=== PATIENT | female | born 1985 | race Caucasian/White ===

== ENCOUNTER 2016-10-22 10:41 | Emergency (ER) | payer OTHER ==
[~2016-10-22] VITALS: Ht 167.6 cm; Wt 61.4 kg
[~2016-10-22 10:41] MED LIST: ALBUINHPP INH; AMIT10TA6 PO; QVAR40INH INH; VICODIN 5-3251 EACH PO; ZIT250 PO
[2016-10-22 10:56] VITALS: BP 117/61; PULSE 91; RESP 16; O2SAT 96
[2016-10-22] MEDS ORDERED: 0.9% Sodium Chloride 1,000 ML IV ONE ×2 (11:10→12:45)
[2016-10-22] MEDS ORDERED: Ondansetron 2 mg/mL 2 mL Inj IVPUSH PRN (11:10)
--- NOTE | 2016-10-22 11:10 | ED.REPORT ---
HPI-Abd Pain F Under 40 Date of Service Oct 22, 2016 ED Provider: History of Present Illness: 30yo female with 2 days of n/d with scant spotting. She reports LMP 09/13/16, suspects 5 weeks . . Nursing Notes Stated Complaint: CRAMPING, VOMITING/ 4-5 WKS PREG. Chief Complaint: & Delivery Nursing Notes Reviewed: Yes Allergies: Coded Allergies: clindamycin (Unverified Allergy, Severe, HIVES, 03/17/13) latex (Verified Allergy, Severe, HIVES, 03/17/13) Cephalexin Monohydrate (Verified Allergy, Intermediate, vomiting/migraine , 03/17/13) tramadol (Verified Allergy, Intermediate, MIGRAINES, 10/17/15) TAPE (Verified Allergy, Unknown, UNKNOWN, 03/17/13) levofloxacin (Verified Allergy, Unknown, 07/06/14) Penicillins (Verified Adverse Reaction, Severe, JITTERY, FAINT, HIVES, ) Uncoded Allergies: BANANAS (Allergy, Unknown, 08/29/12) BEES (Allergy, Unknown, UNKNOWN, 08/28/12) Scheduled Albuterol-Expunged Drug, Do Not Renew! (Albuterol-Expunged Drug, Do Not Renew!) 90 Mcg Puff 2 PUFF INH Q 4HRS PRN Amitriptyline-Expunged Drug, Do Not Renew! (Amitriptyline-Expunged Drug, Do Not Renew!) 10 Mg Tablet 10-30 MG PO HS Azithromycin (Zithromax) 250 Mg Tablet 250 MG PO DAILY BECLOMETHASONE DIP-Expunged Drug, Do Not Bernard (QVAR 40-Expunged Drug, Do Not Renew!) 120 Puffs/8.7 Gm Aero 1 PUFFS INH BID Scheduled PRN Hydrocod/APAP-Expunged, Do Not Renew! (VICODIN 5/325-Expunged Drug, Do Not Renew ) 1 Each Tablet 1-2 TAB PO Q8HP PRN PRN Ondansetron ODT (Zofran ODT) 8 Mg Tablet 8 MG PO QID PRN PRN For Nausea General Time Seen by MD: 11:05 Chief Complaint Nausea, , 1st trimester, Vaginal bleeding, Vomiting mild Hx Obtained From: Patient Arrived By: Walk-in Sudden in Onset?: Yes Onset Occurred: 2 days ago Progression since Onset: Waxes and wanes Location: : Diffuse Quality: Cramping Severity: Current: Mild Severity: Maximum: Mild Associated with: Reports: Nausea, Vaginal bleeding, Denies: Chills, Diarrhea, Dysuria, Fever, Shortness of breath, Urinary frequency, Vaginal discharge Pertinent Negative: Pt denies other symptoms Recent Healthcare: No recent doctor visit Risk Factors Ectopic Risk Stratification Risk factors reviewed CAD Risk Stratification Smoking Risk factors reviewed TAD Risk Stratification Risk factors reviewed Past Medical History Past Medical History Chronic back pain on opiates Reports: Asthma Past Surgical History denies Family History Reports: Cancer Smoking History Current Every Day Smoker Social History Alcohol Use: "Social" Drug Use: THC Other Social History: Good social support, Lives with children, Local resident Ambulatory Status Independent Review of Systems Constitutional: Denies: Chills, Fever Cardiovascular: Denies: Chest pain GI: Reports: Abdominal pain, Nausea, Vomiting Female: Reports: Vaginal bleeding - abnl, Denies: Dysuria Complete sys rev & neg: except as marked. Physical Exam Initial Vital Signs Vital Signs (First) Date Time Temp Pulse Resp B/P Pulse Ox O2 Delivery O2 Flow Rate FiO2 10/22/16 10:56 37.4 91 16 117/61 96 Initial VS: Vital signs normal General/Constitutional: Awake, Alert, No acute distress, Well hydrated, Not toxic appearing Respiratory / Chest: Breath sounds NL, Breath sounds = bilat, No respiratory distress Cardiovascular: Heart rate NL, Regular rhythm, Heart sounds NL Abdomen: Soft, Non-tender, No guarding, BS normoactive ENT: Airway patent, Pharynx NL Neck: Supple Interpretation & Diagnostics Lab Results Interpretation Result Diagram: 10/22/16 1143 10/22/16 1143 Test 10/22/16 11:43 10/22/16 12:59 White Blood Count 14.7th/mm3 (3.8-10.1) Red Blood Count 4.34mil/mm3 (3.90-5.20) Hemoglobin 14.1g/dL (12.0-15.6) Hematocrit 41.1% (35.0-46.0) Mean Corpuscular Volume 94.7fL (81-100) Mean Corpuscular Hemoglobin 32.5pg (27.0-35.0) Mean Corpuscular Hemoglobin Concent 34.3% (32.0-37.0) Red Cell Distribution Width 12.6% (12.3-15.4) Platelet Count 346bil/L (150-400) Neutrophils (%) (Auto) 76.6% (40-74) Lymphocytes (%) (Auto) 15.4% (14-46) Monocytes (%) (Auto) 6.5% (4-12) Eosinophils (%) (Auto) 0.9% (0-5) Basophils (%) (Auto) 0.3% (0-3) Sodium Level 138mEq/L (134-144) Potassium Level 3.8mEq/L (3.5-5.2) Chloride Level 102mEq/L (97-108) Carbon Dioxide Level 20mmol/L (18-29) Blood Urea Nitrogen 6mg/dL (6-20) Creatinine 0.51mg/dL (0.57-1.00) Estimat Glomerular Filtration Rate 200mL/min (>59) Glucose Level 94mg/dL (60-99) Calcium Level 9.3mg/dL (8.5-10.1) Total Bilirubin 1.2mg/dL (0.0-1.2) Aspartate Amino Transf (AST/SGOT) 14U/L (0-50) Alanine Aminotransferase (ALT/SGPT) 9U/L (0-32) Alkaline Phosphatase 59U/L (25-150) Total Protein 7.2g/dL (6.4-8.4) Albumin 4.2g/dL (3.4-5.0) HCG Beta Subunit 9325mIU/mL [place] Top Tube Received (Received) Urine Color Yellow (YELLOW) Urine Appearance Clear (CLEAR,HAZY) Urine pH 6.5 (5.0-8.0) Urine Specific [place] <1.005 (1.003-1.035) Urine Protein Negativemg/dL (NEG,TRACE) Urine Glucose (UA) Negativemg/dL (NEGATIVE) Urine Ketones Tracemg/dL (NEGATIVE) Urine Occult Blood Small (NEGATIVE) Urine Nitrite Negative (NEGATIVE) Urine Bilirubin Negative (NEGATIVE) Urine Urobilinogen Normalmg/dL (NORMAL) Urine Leukocyte Esterase Negative (NEGATIVE) Urine RBC 3-10/hpf (0-2) Urine WBC 0-5/hpf (0-5) Urine Epithelial Cells Moderate/hpf (NONE-MOD) Urine Crystals None seen (NONE SEEN) Urine Bacteria Few/hpf (NONE-FEW) Urine Hyaline Casts None/lpf (NONE) Urine Granular Casts None seen (NONE SEEN) Urine Waxy Casts None seen (NONE SEEN) Urine Red Blood Cell Casts None seen (NONE SEEN) Urine White Blood Cell Casts None seen (NONE SEEN) Urine Mucus None seen (None Seen) Urine Trichomonas None seen (NONE SEEN) Urine Yeast None (NONE SEEN) Urinalysis Comment None Urine Culture Reflexed Not indicated US Focused OB PROCEDURE: US OB<14 WKS+OB TRANSVAG INDICATIONS: r/o ectopic OUTSIDE/PRIOR DATING DATA: Last menstrual period (LMP): Unknown. LMP-based estimated date of delivery (LIANE): Not available. First dating scan (date and location): 10/22/16, [facility]. Estimated date of delivery (LIANE) from first dating scan: 06/16/17. TECHNIQUE: Real-time scanning was performed of the fetus and maternal pelvic organs, with image documentation. Endovaginal scanning was also performed to better visualize the fetus and maternal ovaries. COMPARISON: None. FINDINGS: Embryo: There is a single live intrauterine gestation with a crown-rump length of 0.4 cm for a gestational age of 6 weeks, one day. Measurement variability in dating: +/- 4 weeks by LMP, +/- 7 days by mean sac diameter (use before 6 weeks gestation if crown-rump length not able to be measured), +/- 5 days by crown-rump length (6-12 weeks gestation). Maternal organs: Ovaries have a normal appearance. There is likely left corpus luteal cyst which measures 1.8 cm in diameter.. Limited images through the kidneys demonstrate no hydronephrosis. IMPRESSION: 1. Single live intrauterine gestation with a gestational age of 6 weeks one days by crown-rump length. Dictated by: Maria Weiss M.D. on 10/22/2016 at 15:52 Approved by: Maria Weiss M.D. on 10/22/2016 at 15:54 Re-Eval/Medical Decision Med Decision/Clinical Course Med Decision/Clinical Course: Pt. remained crampy in ED, no emesis, tolerated PO intake. Labs and US reassuring. Encouragerd follow up with OB. Discussed s/s for which to return to ED. Prior to formal discharge Pt. maria l. Counseled Regarding: Diagnosis, Lab results, Need for follow-up, When/why to return to ED Discharge & Departure Shift Change Sign-Out Response to Therapy: Improved Primary Impression: First-trimester bleeding Disposition: Home Patient Instructions: Threatened Miscarriage (ED) Additional Instructions: Rest, take Zofran and Tylenol as needed for nausea/cramping. Follow up with OB as planned. Return to ER if worse. Referrals: Anup Nance DO (PCP) 1 Day if not improved EDSupervising Provider for APC: Lobo Mark MD, Christopher R PAC Oct 22, 2016 11:10
[2016-10-22 11:54] LABS: BASOPHILS % (AUTO) 0.3 % (0-3); EOSINOPHILS % (AUTO) 0.9 % (0-5); MONOCYTES % (AUTO) 6.5 % (4-12); Mean Corpuscular Hemoglobin 32.5 pg (27.0-35.0); Mean Corpuscular Volume 94.7 fL (81-100); NEUTROPHILS % (AUTO) 76.6 % (40-74); Platelet Count 346 bil/L (150-400)
[2016-10-22 13:53] LABS: APPEARANCE,URINE CLEAR (CLEAR,HAZY); COLOR,URINE YELLOW (YELLOW); OCCULT BLOOD,URINE SMALL (NEGATIVE); PH,URINE 6.5 (5.0-8.0); UROBILINOGEN,URINE NORMAL (NORMAL)
--- NOTE | 2016-10-22 15:56 | DRSVH ---
PROCEDURE: US OB<14 WKS+OB TRANSVAG INDICATIONS: r/o ectopic OUTSIDE/PRIOR DATING DATA: Last menstrual period (LMP): Unknown. LMP-based estimated date of delivery (LIANE): Not available. First dating scan (date and location): 10/22/16, [facility]. Estimated date of delivery (LIANE) from first dating scan: 06/16/17. TECHNIQUE: Real-time scanning was performed of the fetus and maternal pelvic organs, with image documentation. Endovaginal scanning was also performed to better visualize the fetus and maternal ovaries. COMPARISON: None. FINDINGS: Embryo: There is a single live intrauterine gestation with a crown-rump length of 0.4 cm for a gestat ional age of 6 weeks, one day. Measurement variability in dating: +/- 4 weeks by LMP, +/- 7 days by mean sac diameter (use before 6 weeks gestation if crown-rump length not able to be measured), +/- 5 days by crown-rump length (6-12 weeks gestation). Maternal organs: Ovaries have a normal appearance. There is likely left corpus luteal cyst which roge sures 1.8 cm in diameter.. Limited images through the kidneys demonstrate no hydronephrosis. IMPRESSION: 1. Single live intrauterine gestation with a gestational age of 6 weeks one days by crown-rump length . Dictated by: Maria Weiss M.D. on 10/22/2016 at 15:52 Approved by: Maria Weiss M.D. on 10/22/2016 at 15:54
[2016-10-22] MEDS ORDERED: ONDA8TAB7 PO (15:59)
== END 2016-10-22 16:07 | disposition home or self-care (01) ==
LOC: SED 10:41
DX: O20.9 Hemorrhage in early pregnancy, unspecified (principal); O99.331 Smoking (tobacco) complicating pregnancy, first trimester; J45.909 Unspecified asthma, uncomplicated; Z3A.01 Less than 8 weeks gestation of pregnancy; Z88.1 Allergy status to other antibiotic agents; Z91.040 Latex allergy status; Z88.8 Allergy status to other drugs, medicaments and biological substances; Z88.0 Allergy status to penicillin
CPT/HCPCS: 36415; 76801; 76817; 80053; 81000; 84702; 85025; 96361; 96374; 99285; J1200; J7030

== ENCOUNTER 2016-12-12 09:55 | Emergency (ER) | payer OTHER ==
[~2016-12-12] VITALS: Ht 167.6 cm; Wt 63.6 kg
[~2016-12-12 09:55] MED LIST changes: +ONDA8TAB7 PO
[2016-12-12 09:57] VITALS: BP 108/56; PULSE 91; RESP 16; O2SAT 98
[2016-12-12] MEDS ORDERED: 0.9% Sodium Chloride 1,000 ML IV ONE (10:08)
--- NOTE | 2016-12-12 10:10 | ED.REPORT ---
HPI-Preg Under 20 Weeks Date of Service Dec 12, 2016 ED Provider: Oswaldo Stoner MD The patient is a 31 year old female who is currently 13 weeks , who presents to the emergency department complaining of vaginal bleeding and cramping that began last night after she had intercourse. She noticed a moderate amount of blood with what appeared to be "tissue." The bleeding has continued today but is sas architect compared to last night. Her last menstrual period was September 09. Her previous deliveries were all vaginal. The patient mentions several recent stressors. Her cousin and uncle both in the last week. Nursing Notes Stated Complaint: BLEEDING ,CRAMPING, 13 WEEKS Chief Complaint: Female Abdominal Pain Nursing Notes Reviewed: Yes Allergies: Coded Allergies: clindamycin (Unverified Allergy, Severe, HIVES, 03/17/13) latex (Verified Allergy, Severe, HIVES, 03/17/13) Cephalexin Monohydrate (Verified Allergy, Intermediate, vomiting/migraine , 03/17/13) tramadol (Verified Allergy, Intermediate, MIGRAINES, 10/17/15) TAPE (Verified Allergy, Unknown, UNKNOWN, 03/17/13) levofloxacin (Verified Allergy, Unknown, 07/06/14) Penicillins (Verified Adverse Reaction, Severe, JITTERY, FAINT, HIVES, ) Uncoded Allergies: BANANAS (Allergy, Unknown, 08/29/12) BEES (Allergy, Unknown, UNKNOWN, 08/28/12) Scheduled Pnv with Ca,No.74/Iron/FA (Niva-Plus Tablet) 27 Mg Iron-1 Mg Tablet 1 TAB PO DAILY Scheduled PRN Albuterol Sulfate (Ventolin HFA Inhaler) 200 Puff/18 Gm Inhaler 2 PUFFS IH Q4H PRN PRN For Wheezing Hydrocodone-Acetaminophen 7.5-325 mg (Hydrocodone-Acetaminophen 7.5-325 mg) 1 Each Tablet 1 TAB PO q6-8h PRN PRN For Pain Ondansetron ODT (Zofran ODT) 4 Mg Tablet 4 MG PO Q4H PRN PRN For Nausea Sumatriptan Succinate (Sumatriptan Succinate) 100 Mg Tablet 100 MG PO DAILY PRN PRN For Headache General Time Seen by Provider: 10:20 Chief Complaint Abdominal cramping, Vaginal bleeding Context: : ... (4), Para... (3) Hx Obtained From: Patient Arrived By: Walk-in Onset Occurred: Yesterday Symptom Duration: Since onset Progression Since Onset: Constant, Gradually improving Location: : Suprapubic Quality: Cramping Severity: Current: Mild Severity: Maximum: Moderate Recent Healthcare: No recent hospitalization, Recent doctor visit Similar Sx Previous: No Past Medical History Past Medical History Chronic back pain on opiates Reports: Asthma Past Surgical History denies Family History Reports: Cancer Smoking History Current Every Day Smoker Social History Alcohol Use: "Social" Drug Use: THC Other Social History: Good social support, , Lives with children, Local resident Ambulatory Status Independent Review of Systems Female: Reports: Pelvic pain, , Vaginal bleeding - abnl Complete sys rev & neg: except as marked. Psychiatric: Reports: Stress Physical Exam Initial Vital Signs Vital Signs (First) Date Time Temp Pulse Resp B/P Pulse Ox O2 Delivery O2 Flow Rate FiO2 12/12/16 09:57 36.6 91 16 108/56 98 Initial VS: Reviewed Head / Eyes: Atraumatic, Normocephalic, PERRL ENT: Mucous membranes moist, Conjunctiva normal, No scleral icterus Neck: Supple, Non-tender, Full range of motion Respiratory: Breath sounds normal, Clear to auscultation, No respiratory distress Cardiovascular: Regular rate & rhythm, Heart sounds normal, Intact distal pulses Lymphatic: No lymphadenopathy Extremities: Vascular intact, Neuro intact, No swelling, No tenderness Skin: Warm, Dry, No cyanosis Neurologic: Alert, Oriented, Nonfocal Psychiatric: Mood/affect normal, Behavior normal, Normal thought content General/Constitutional: Awake, Alert, Cooperative Abdomen: Soft, No guarding, No rebound, BS normoactive, No distention, No hernia, No palpable mass, No pulsatile mass Mild tenderness about the lower abdomen. 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 No abnormal discharge. Not unusually tender during exam. Cervix is closed with no blood at the cervical os. Interpretation & Diagnostics Interpretation & Diagnostics: US: Normal IUP Lab Results Interpretation Result Diagram: 12/12/16 1030 12/12/16 1030 Test 12/12/16 10:00 12/12/16 10:30 Urine Color Straw (YELLOW) Urine Appearance Hazy (CLEAR,HAZY) Urine pH 7.5 (5.0-8.0) Urine Specific [place] 1.010 (1.003-1.035) Urine Protein Negativemg/dL (NEG,TRACE) Urine Glucose (UA) Negativemg/dL (NEGATIVE) Urine Ketones Negativemg/dL (NEGATIVE) Urine Occult Blood Moderate (NEGATIVE) Urine Nitrite Negative (NEGATIVE) Urine Bilirubin Negative (NEGATIVE) Urine Urobilinogen Normalmg/dL (NORMAL) Urine Leukocyte Esterase Negative (NEGATIVE) Urine RBC 3-10/hpf (0-2) Urine WBC 0-5/hpf (0-5) Urine Epithelial Cells Occasional/hpf (NONE-MOD) Urine Crystals None seen (NONE SEEN) Urine Bacteria None/hpf (NONE-FEW) Urine Hyaline Casts None/lpf (NONE) Urine Granular Casts None seen (NONE SEEN) Urine Waxy Casts None seen (NONE SEEN) Urine Red Blood Cell Casts None seen (NONE SEEN) Urine White Blood Cell Casts None seen (NONE SEEN) Urine Mucus None seen (None Seen) Urine Trichomonas None seen (NONE SEEN) Urine Yeast None (NONE SEEN) Urinalysis Comment None Urine Culture Reflexed Not indicated White Blood Count 12.8th/mm3 (3.8-10.1) Red Blood Count 3.65mil/mm3 (3.90-5.20) Hemoglobin 11.8g/dL (12.0-15.6) Hematocrit 34.8% (35.0-46.0) Mean Corpuscular Volume 95.3fL (81-100) Mean Corpuscular Hemoglobin 32.3pg (27.0-35.0) Mean Corpuscular Hemoglobin Concent 33.9% (32.0-37.0) Red Cell Distribution Width 14.5% (12.3-15.4) Platelet Count 313bil/L (150-400) Sodium Level 136mEq/L (134-144) Potassium Level 3.9mEq/L (3.5-5.2) Chloride Level 102mEq/L (97-108) Carbon Dioxide Level 20mmol/L (18-29) Blood Urea Nitrogen 6mg/dL (6-20) Creatinine 0.38mg/dL (0.57-1.00) Estimat Glomerular Filtration Rate 279mL/min (>59) Glucose Level 85mg/dL (60-99) Calcium Level 8.7mg/dL (8.5-10.1) Total Bilirubin 0.6mg/dL (0.0-1.2) Aspartate Amino Transf (AST/SGOT) 12U/L (0-50) Alanine Aminotransferase (ALT/SGPT) 7U/L (0-32) Alkaline Phosphatase 39U/L (25-150) Total Protein 6.4g/dL (6.4-8.4) Albumin 3.9g/dL (3.4-5.0) HCG Beta Subunit 83984mZB/mL Re-Eval/Medical Decision Med Decision/Clinical Course The patient is a 31 year old female who is currently 13 weeks , who presents to the emergency department complaining of vaginal bleeding and cramping that began last night after she had intercourse. Here in the emergency department the patient is afebrile, hemodynamically stable and in no apparent distress. Pelvic examination reveals a closed cervical os with only very scant blood present in the vaginal canal. Ultrasound was obtained and demonstrated a normal IUP. LABS: leukocytosis 12.8, hematocrit 348, CMP unremarkable, UA without any signs of infection, Rh positive. Overall presentation consistent with mild cervical trauma in the setting of and increased cervical friability. I see no evidence of bleeding mass, cervix is closed and intrauterine is demonstrated on ultrasound. At this time no evidence of threatened or inevitable . I am unconvinced of acute surgical intra-abdominal process such as appendicitis or ovarian torsion. 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 Follow-up and return precautions have been reviewed in detail and the patient was discharged in good condition. Source of Hx: Old records Re-Evaluation/Progress #1: Time of Eval: 10:44 Re-Evaluation/Progress Note: Discussed plan for US and labs. All questions were addressed. Re-Evaluation/Progress #2: Time of Eval: 12:00 Re-Evaluation/Progress Note: Discussed results, diagnosis, and plan for discharge. All questions were addressed. Counseled Regarding: Diagnosis, Lab results, Need for follow-up, When/why to return to ED Discharge & Departure Primary Impression: Bleeding after intercourse Additional Impressions: Intrauterine Abdominal pain Abdominal location: unspecified location Qualified Code: R10.9 - Unspecified abdominal pain Disposition: Home Discharge Condition All VS Reviewed: Yes Condition: Stable Patient Instructions: (ED) Additional Instructions: Thank you for seeking care at the emergency room. It is difficult for us to make definitive diagnoses in the ED but we believe that you were experiencing bleeding after intercourse. Our primary goal today in the ED was to evaluate you for any life-threatening conditions. Your evaluation was reassuring. You should follow-up with your OBGYN or primary doctor in the next week. You should return to the ED immediately if you develop severe bleeding, increased pain, fevers, vomiting, lightheadedness, dizziness, weakness or any other concerning signs or symptoms. Thank you for letting us partake in your care today. Referrals: Anup Nance DO (PCP) [place] Attestation Portions of this note were transcribed by Tequila Edgar. I, Dr. Stoner personally performed the history, physical exam and medical decision-making; I reviewed and confirmed the accuracy of the information in the transcribed note. Signed by: Santos King, 12/12/2016 at 1202. copies to: Anup Nance DO [place], Beck O MD Dec 12, 2016 10:10 Tequila Edgar Dec 12, 2016 10:20
[2016-12-12 10:30] LABS: APPEARANCE,URINE HAZY (CLEAR,HAZY); COLOR,URINE STRAW (YELLOW)
[2016-12-12 10:31] LABS: OCCULT BLOOD,URINE MODERATE (NEGATIVE); PH,URINE 7.5 (5.0-8.0); UROBILINOGEN,URINE NORMAL (NORMAL)
[2016-12-12 10:59] LABS: Mean Corpuscular Hemoglobin 32.3 pg (27.0-35.0); Mean Corpuscular Volume 95.3 fL (81-100)
[2016-12-12] MEDS ORDERED: ALBU18HF IH (11:32)
[2016-12-12] MEDS ORDERED: HYDR-3825 PO (11:32)
[2016-12-12] MEDS ORDERED: SUMA100T2 PO (11:32)
[2016-12-12] MEDS ORDERED: PNV1TABL80 PO (11:32)
[2016-12-12] MEDS ORDERED: ONDA4TAB9 PO (11:39)
--- NOTE | 2016-12-12 12:01 | DRSVH ---
PROCEDURE: US OB 1 OR MORE FETUS LIMITED INDICATIONS: vag bleed/preg OUTSIDE/PRIOR DATING DATA: Last menstrual period (LMP): Unknown. LMP-based estimated date of delivery (LIANE): Not available. First dating scan (date and location): 10/22/16, [facility]. Estimated date of delivery (LIANE) from first dating scan: 06/16/17. TECHNIQUE: Real-time scanning was performed of the fetus, with image documentation and biometric measurements. COMPARISON: [facility], , OB<14 WKS+OB TRANSVAG, 10/22/2016, 15:06. FINDINGS: General: A single living intrauterine gestation is present. Presentation: Transverse. Placenta: Placental position is anterior , and low-lying at this early gestational age. 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 Biometry BiometryGroup Biparietal Diameter (Mean): 2.40 cm Gestational Age (BPD): 14 weeks, 0 days Head Circumference (Mean): 9.40 cm Gestational Age (HC): 14 weeks, 2 days Abdominal Circumference (Mean): 7.38 cm Gestational Age (AC): 13 weeks, 6 days Measurement variability in biometric dating: +/- 10 days from 12-20 weeks gestation, +/- 2 weeks from 20-30 weeks gestation, +/- 3 weeks at 30 weeks gestation or more. Other: Not applicable. IMPRESSION: 1. Single living intrauterine gestation redemonstrated and no source of vaginal bleeding is identifie d. 2. Low lying placenta. Followup recommended. Dictated by: Arron SANTANA Interpreted: Elda Ku MD on 12/12/2016 at 11:58 Transcribed by: BECKY on 12/12/2016 at 12:00 Approved by: Elda Ku M.D. on 12/12/2016 at 17:36
[2016-12-12 12:09] VITALS: BP 100/53; PULSE 68; RESP 16; O2SAT 100
== END 2016-12-12 12:01 | disposition home or self-care (01) ==
LOC: SED 09:55
DX: O26.891 Other specified pregnancy related conditions, first trimester (principal); N93.0 Postcoital and contact bleeding; R10.9 Unspecified abdominal pain; Z3A.13 13 weeks gestation of pregnancy; F17.200 Nicotine dependence, unspecified, uncomplicated; Z88.0 Allergy status to penicillin; Z88.1 Allergy status to other antibiotic agents; Z88.5 Allergy status to narcotic agent; Z88.8 Allergy status to other drugs, medicaments and biological substances; Z91.040 Latex allergy status
CPT/HCPCS: 36415; 76815; 80053; 81000; 81025; 84702; 85027; 96360; 99285; J7030

== ENCOUNTER 2017-01-16 13:06 | Emergency (ER) | payer OTHER ==
[~2017-01-16] VITALS: Ht 167.6 cm; Wt 66.5 kg
[~2017-01-16 13:06] MED LIST changes: +ALBU18HF IH; -ALBUINHPP INH; -AMIT10TA6 PO; +HYDR-3825 PO; +ONDA4TAB9 PO; -ONDA8TAB7 PO; +PNV1TABL80 PO; -QVAR40INH INH; +SUMA100T2 PO; -VICODIN 5-3251 EACH PO; -ZIT250 PO
[2017-01-16 13:08] VITALS: BP 98/61; PULSE 75; RESP 16; O2SAT 99
--- NOTE | 2017-01-16 13:31 | ED.REPORT ---
HPI-Abd Pain F Under 40 Date of Service Jan 16, 2017 ED Provider: Lobo Mark MD An 18 week 31 year old female with a history of asthma presents to the ED from accompanied by sister, son, and friend, complaining of RUQ abdominal pain onset 0300 today. She has never experienced pain like this before. Associated symptoms include pain with breathing. She denies any fever. Per friend, at 0900 patient did not have diaphoresis. wanted imaging performed. Nursing Notes Stated Complaint: RIB PAIN Chief Complaint: Female Abdominal Pain Nursing Notes Reviewed: Yes Allergies: Coded Allergies: clindamycin (Verified Allergy, Severe, HIVES, 01/16/17) latex (Verified Allergy, Severe, HIVES, 03/17/13) Cephalexin Monohydrate (Verified Allergy, Intermediate, vomiting/migraine , 03/17/13) tramadol (Verified Allergy, Intermediate, MIGRAINES, 10/17/15) TAPE (Verified Allergy, Unknown, UNKNOWN, 03/17/13) levofloxacin (Verified Allergy, Unknown, 07/06/14) Penicillins (Verified Adverse Reaction, Severe, JITTERY, FAINT, HIVES, ) Uncoded Allergies: BANANAS (Allergy, Unknown, 08/29/12) BEES (Allergy, Unknown, UNKNOWN, 08/28/12) Scheduled Pnv with Ca,No.74/Iron/FA (Niva-Plus Tablet) 27 Mg Iron-1 Mg Tablet 1 TAB PO DAILY Scheduled PRN Albuterol Sulfate (Ventolin HFA Inhaler) 200 Puff/18 Gm Inhaler 2 PUFFS IH Q4H PRN PRN For Wheezing Hydrocodone-Acetaminophen 7.5-325 mg (Hydrocodone-Acetaminophen 7.5-325 mg) 1 Each Tablet 1 TAB PO q6-8h PRN PRN For Pain Ondansetron ODT (Zofran ODT) 4 Mg Tablet 4 MG PO Q4H PRN PRN For Nausea Sumatriptan Succinate (Sumatriptan Succinate) 100 Mg Tablet 100 MG PO DAILY PRN PRN For Headache General Time Seen by MD: 13:30 Chief Complaint Abdominal pain Hx Obtained From: Patient Arrived By: Walk-in Sudden in Onset?: No Onset Occurred: 9 - 12 hours ago Symptom Duration: Since onset Location: : RUQ Severity: Current: Moderate Severity: Maximum: Moderate Recent Healthcare: Recent doctor visit (ED visit on 12/12/16 ) Similar Sx Previous: No Past Medical History Past Medical History Chronic back pain on opiates. hX of UTI during prior . Patient visited ED on 12/12/16 for vaginal bleeding. Reports: Asthma (treated with medication every few days.) Past Surgical History C-spine 7 fusion surgery. Family History Reports: Cancer Smoking History Current Every Day Smoker Social History Recent family stress. Alcohol Use: "Social" Drug Use: THC Other Social History: Good social support, , Lives with children, Local resident Ambulatory Status Independent Review of Systems Review of Systems Note: Pain with breathing. Denies diaphoresis. Constitutional: Denies: Fever GI: Reports: Abdominal pain Complete sys rev & neg: except as marked. Physical Exam Initial Vital Signs Vital Signs (First) Date Time Temp Pulse Resp B/P Pulse Ox O2 Delivery O2 Flow Rate FiO2 01/16/17 13:08 36.3 75 16 98/61 99 Room Air Initial VS: Reviewed General/Constitutional: Awake, Alert Behavior: Positive: Anxious Respiratory / Chest: Atraumatic, Breath sounds NL, Breath sounds = bilat, No respiratory distress, No rales, No rhonchi, No wheezing Cardiovascular: Heart rate NL, Regular rhythm, Heart sounds NL, No gallop, No murmurs, No rubs Abdomen: Soft (Abdomen soft with exquisite tenderness to the lightest possible touch.) Back: Atraumatic, Inspection NL Head / Eyes: Atraumatic, Normocephalic, PERRL, EOMI ENT: Atraumatic, Mucous membranes moist Skin: Atraumatic, Color NL, Warm, Dry Neurologic: Oriented X3, Speech NL Upper Extremity / MS: No swelling, No edema Interpretation & Diagnostics Lab Results Interpretation Result Diagram: 01/16/17 1400 01/16/17 1400 Test 01/16/17 14:00 01/16/17 14:46 White Blood Count 15.1th/mm3 (3.8-10.1) Red Blood Count 3.86mil/mm3 (3.90-5.20) Hemoglobin 12.6g/dL (12.0-15.6) Hematocrit 38.2% (35.0-46.0) Mean Corpuscular Volume 99.0fL (81-100) Mean Corpuscular Hemoglobin 32.6pg (27.0-35.0) Mean Corpuscular Hemoglobin Concent 33.0% (32.0-37.0) Red Cell Distribution Width 14.6% (12.3-15.4) Platelet Count 321bil/L (150-400) Neutrophils (%) (Auto) 74.0% (40-74) Lymphocytes (%) (Auto) 17.7% (14-46) Monocytes (%) (Auto) 6.2% (4-12) Eosinophils (%) (Auto) 1.6% (0-5) Basophils (%) (Auto) 0.2% (0-3) Sodium Level 136mEq/L (134-144) Potassium Level 4.1mEq/L (3.5-5.2) Chloride Level 100mEq/L (97-108) Carbon Dioxide Level 20mmol/L (18-29) Blood Urea Nitrogen 7mg/dL (6-20) Creatinine 0.39mg/dL (0.57-1.00) Estimat Glomerular Filtration Rate 271mL/min (>59) Glucose Level 81mg/dL (60-99) Calcium Level 9.5mg/dL (8.5-10.1) Total Bilirubin 0.9mg/dL (0.0-1.2) Aspartate Amino Transf (AST/SGOT) 14U/L (0-50) Alanine Aminotransferase (ALT/SGPT) 9U/L (0-32) Alkaline Phosphatase 47U/L (25-150) Total Protein 7.3g/dL (6.4-8.4) Albumin 4.1g/dL (3.4-5.0) Lipase 36U/L (13-60) Re-Eval/Medical Decision Source of Hx: Old records Re-Evaluation/Progress #1: Time of Eval: 13:36 Re-Evaluation/Progress Note: Bedside US shows normal heart rate, normal amniotic fluid, and normal movement. Re-Evaluation/Progress #2: Time of Eval: 14:36 Re-Evaluation/Progress Note: Rechecked patient, explained test results, diagnosis, and plan for discharge. Patient understands and agrees with the plan. All questions addressed. Counseled Regarding: Diagnosis, Lab results, Need for follow-up, When/why to return to ED Discharge & Departure Primary Impression: Abdominal pain Abdominal location: generalized Qualified Code: R10.84 - Generalized abdominal pain Disposition: Home Patient Instructions: Acute Abdominal Pain (ED) Additional Instructions: Dangerous cause for your abdominal pain is discovered today. I recommend ibuprofen 800 mg every 8 hours. I also recommend Tylenol 1000 mg every 6 hours as needed for pain. You can take her hydrocodone/APAP as needed or recommended by . Make sure that you are not taking more than 4000 mg of Tylenol every 24 hours. Each hydrocodone pill has 325 mg of Tylenol in it. You have an appointment with Dr. Nance this Sunday at 11 AM. Referrals: Anup Nance DO (PCP) Scribe Attestation Portions of this note were transcribed by Festus Blue. I, Dr. Mark personally performed the history, physical exam and medical decision-making; I reviewed and confirmed the accuracy of the information in the transcribed note. Signed by: Santos Gallego, 01/16/2017, 1442. copies to: Anup Nance DO Brownell, Kirk H MD Jan 16, 2017 13:31 Festus Blue Jan 16, 2017 13:37
[2017-01-16 14:05] LABS: BASOPHILS % (AUTO) 0.2 % (0-3); EOSINOPHILS % (AUTO) 1.6 % (0-5); MONOCYTES % (AUTO) 6.2 % (4-12); Mean Corpuscular Hemoglobin 32.6 pg (27.0-35.0); Platelet Count 321 bil/L (150-400)
--- NOTE | 2017-01-16 14:57 | DRSVH ---
PROCEDURE: US ABDOMEN ([id number]) INDICATIONS: RUQ pain TECHNIQUE: Real-time scanning was performed of the abdominal and retroperitoneal organs, with image documentatio n. COMPARISON: [facility], [place], ABD/PELVIS W/CON (PNL), 12/08/2014, 18:08. FINDINGS: Liver: Liver is prominent in size and demonstrates mildly increased echotexture. Gallbladder: No gallstones. No gallbladder wall thickening, pericholecystic fluid or sonographic Mu rphy's sign. Biliary ducts: Intrahepatic bile ducts are non-dilated. Extrahepatic bile duct caliber measures 3.3 mm. Normal is 6-7 mm or less in diameter, or 10 mm or less post-cholecystectomy. Pancreas: Visualized portions of the pancreas are sonographically normal. Spleen: Spleen is normal in size and homogeneous in echotexture. Kidneys: Kidneys are normal in size and echotexture. Right kidney measures 11.4 cm long; left kidne y measures 12.5 cm long. No hydronephrosis or nephrolithiasis. No solid masses. Aorta: Visualized aorta is normal in caliber at less than 3 cm. Iliacs: Proximal common iliac arteries are obscured by overlying bowel gas. IVC: Intrahepatic inferior vena cava is patent. Miscellaneous: No free abdominal fluid. Appendix is not visualized. IMPRESSION: 1. Diffusely increased hepatic echotexture. This finding is most likely secondary to hepatic fatty i nfiltration although other hepatocellular disease may have a similar appearance. Recommend clinical c orrelation. 2. Normal gallbladder. Dictated by: Armin Tran M.D. on 01/16/2017 at 14:53 Approved by: Armin Tran M.D. on 01/16/2017 at 14:55
[2017-01-16 15:01] VITALS: BP 119/78; PULSE 80; RESP 16; O2SAT 100
[2017-01-16 15:18] LABS: APPEARANCE,URINE HAZY (CLEAR,HAZY); COLOR,URINE STRAW (YELLOW); OCCULT BLOOD,URINE MODERATE (NEGATIVE); PH,URINE 6.5 (5.0-8.0); UROBILINOGEN,URINE NORMAL (NORMAL)
== END 2017-01-16 14:50 | disposition home or self-care (01) ==
LOC: SED 13:06
DX: O26.892 Other specified pregnancy related conditions, second trimester (principal); R10.84 Generalized abdominal pain; J45.909 Unspecified asthma, uncomplicated; F17.200 Nicotine dependence, unspecified, uncomplicated; Z3A.18 18 weeks gestation of pregnancy; Z88.0 Allergy status to penicillin; Z88.1 Allergy status to other antibiotic agents; Z91.040 Latex allergy status; Z88.5 Allergy status to narcotic agent; Z91.048 Other nonmedicinal substance allergy status
CPT/HCPCS: 36415; 76700; 76815; 80053; 81000; 83690; 85025; 96374; 99285; J1885

== ENCOUNTER 2017-03-15 17:15 | Inpatient (IN) | payer OTHER ==
[2017-03-15 18:17] LABS: APPEARANCE,URINE HAZY (CLEAR,HAZY); COLOR,URINE YELLOW (YELLOW); OCCULT BLOOD,URINE MODERATE (NEGATIVE); PH,URINE 5.5 (5.0-8.0); UROBILINOGEN,URINE NORMAL (NORMAL)
[2017-03-15] MEDS ORDERED: Lactated Ringer's 1,000 ML IV SCH (19:55)
[2017-03-15 21:01] VITALS: PULSE 78
[2017-03-15] MEDS ORDERED: NIFEdipine 10 mg Capsule PO ONE (21:45)
[2017-03-15] MEDS ORDERED: Lactated Ringer's 1,000 ML IV ONE (21:45)
[2017-03-15] MEDS ORDERED: HYDROcodone-APAP 5-325 mg Tablet PO ONE (22:20)
--- NOTE | 2017-03-16 01:53 | HP ---
[address] [address] HISTORY AND PHYSICAL PATIENT: JAREK CORBIN : 1985 MR#: [id number] ADMIT: 03/15/2017 JOB ID: [id number] CHIEF COMPLAINT: Contractions. HISTORY OF PRESENT ILLNESS: This is a 31-year-old obstetrical patient of mine who is 4, para 3, at 26 and 5/7 weeks estimated gestational age, who presents to labor and delivery complaining of increasing frequency and severity of pain with contractions. This started about two to three o'clock this afternoon and continued increasing, and so she came to the Center for evaluation. The patient reports that she was not really doing anything at the time, just sitting doing some busy work. Denies any recent illness. No unusual activities. At the Center she was evaluated and found to be having a great deal of right-sided flank pain and abdominal pain that was not typical for contractions. At first, the patient was complaining that the pain was continuous and yet also likened them to contractions. 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 heart tracing was reactive. While they were monitoring her and trying to get these pains they checked a urinalysis that was fairly unremarkable. Then, her position was changed and we were able to start picking up the contractions, and indeed she was having contractions about every 6-7 minutes. FSN was performed which was positive. There was no obvious blood in her vagina but there was a little blood on the speculum afterwards. Cervical exam was closed and long, and the outer service was reportedly dimpled. Cervix was reported as somewhat soft. I was contacted and talked with the nurses, and recommended they start her on some terbutaline. She was given 0.25 mg subcu x3 from 20-30 minutes apart. This seemed to slow the contractions out a little bit but they persisted about every 8-10 minutes. She was watched again for another 30-45 minutes or so and the contractions persisted. Oral nifedipine 20 mg was given to her and she was again monitored closely. After about an hour and a half, she was noted to still be alejandro every 6-7 minutes or so. I had come in to see the patient and evaluate her, and found her cervix to be soft and the outer os was open about 1 to 1.5 cm and seemed to have a funnel shape to it with the inner os being closed. Cervix was long. Baby was ballotable. Throughout this whole time her vital signs were stable and she continued to complain of severe pain from these right flank contraction like pains that she was having. I discussed this case with Dr. Kraft and decided to transfer the patient to the [facility] because of concerns with developing labor. Although her inner os was still closed, her cervix appeared to be changing, and so it was thought prudent to try to transfer her before she potentially develops into active labor. I called the [facility] and discussed this case with Dr. Nieves, who accepted the patient in transfer. PAST OBSTETRICAL HISTORY: Her other course so far has been fairly unremarkable. labs: Her blood type is O-positive. She is rubella immune. Serology nonreactive. Antibody screen was negative at 20 weeks, which is when all the labs were done. Hematocrit was 35.9. She was negative to hepatitis B, hepatitis C, and HIV. HSV-1 was positive. HSV-2 was negative. Her Pap showed ASCUS but was negative for HPV and Chlamydia and gonorrhea tests with her initial Pap were negative. Her last menstrual period was September 09, 2016, corresponding to an EDC of June 16, 2017. This was verified by an early ultrasound on October 22 showing an intrauterine at 6.1 weeks corresponding to an EDC of June 16, 2017. course was otherwise unremarkable. Past obstetrical history: The patient has had three spontaneous vaginal deliveries at term. The first one at 41 weeks in August 2003. Second one at 40 weeks in November in 2006. The third one at 39 weeks in May 2011 after a number of weeks of labor and labor treatment. GYNECOLOGICAL HISTORY: Patient had menarche at 7 years old. Her periods are pretty regular, every 28 days. She reports no history of abnormal Paps. She has a history of ovarian cysts. Otherwise, her gynecological history is unremarkable. PAST MEDICAL HISTORY: Significant for some mild asthma, recurrent sinusitis and seasonal allergy problems. Also, history of kidney stones, migraines, anxiety and depression, chronic lumbar spine degenerative disk disease, as well as cervical spine degenerative disk disease. Otherwise, her medical history is negative. PAST SURGICAL HISTORY: Significant for cervical spine fusion in 2009, as well as a right knee surgery on her meniscus in 2011. FAMILY HISTORY: Significant for brother with diabetes. She has some cousins that were twins. There is no hypertension in the family. Her sister had cervical cancer and her mom had breast cancer. SOCIAL HISTORY: Patient lives in [place] with her significant other of the last five years and her three children. 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 CURRENT MEDICATIONS: Include vitamins, as well as citalopram 20 mg a day and hydroxyzine 25 mg as needed for anxiety. ALLERGIES: The patient has allergy to: 1. PENICILLIN. 2. KEFLEX. 3. CLINDAMYCIN. 4. LATEX. 5. PAPER TAPE. REVIEW OF SYSTEMS: See HPI above. The patient denies any chest pain, palpitations, shortness of breath. No abdominal pain except for the contraction pain. No swelling in her feet. No blurry vision. No unusual headaches. ASSESSMENT AND PLAN: labor. PLAN: Transfer patient to the [facility] to the care of Dr. Nieves as described above. I discussed this with the patient and informed her that the safest thing to do would be to transfer her to the [facility] for further evaluation and care, and she agreed to the transfer. MICHELLE
== END 2017-03-16 00:19 | disposition short-term general hospital (02) | DRG 778 ==
LOC: FBCO 17:15 → FBC 23:44
PROVIDERS: ADMIT Family Medicine; ATTEND Family Medicine
DX: O60.02 Preterm labor without delivery, second trimester (principal); Z3A.26 26 weeks gestation of pregnancy

== ENCOUNTER 2017-03-26 14:46 | Emergency (ER) | payer OTHER ==
[~2017-03-26] VITALS: Ht 167.6 cm; Wt 73.3 kg
[2017-03-26 15:02] VITALS: BP 116/72; PULSE 68; RESP 17; O2SAT 100
[2017-03-26] MEDS ORDERED: CITA20TA11 PO (16:35)
[2017-03-26] MEDS ORDERED: HYDR-656 PO (16:35)
--- NOTE | 2017-03-26 18:21 | ED.REPORT ---
HPI-URI / Cough / Cold Date of Service Mar 26, 2017 ED Provider: Alonso Gage DO A 28 week 31 year old female with a history of asthma and pneumonia presents to the ED complaining of a cough. The pt began experiencing a sore throat four days ago, which gradually progressed to include cough, rhinorrhea and headache. She denies shortness of breath or chest pain when she is not coughing. Nursing Notes Stated Complaint: DIFFICULTY BREATHING, NON CARDIAC CHEST PAIN Chief Complaint: Respiratory Complaints Nursing Notes Reviewed: Yes Allergies: Coded Allergies: clindamycin (Verified Allergy, Severe, HIVES, 01/16/17) latex (Verified Allergy, Severe, HIVES, 03/17/13) Cephalexin Monohydrate (Verified Allergy, Intermediate, vomiting/migraine , 03/17/13) tramadol (Verified Allergy, Intermediate, MIGRAINES, 10/17/15) TAPE (Verified Allergy, Unknown, UNKNOWN, 03/17/13) levofloxacin (Verified Allergy, Unknown, 07/06/14) Penicillins (Verified Adverse Reaction, Severe, JITTERY, FAINT, HIVES, ) Uncoded Allergies: BANANAS (Allergy, Unknown, 08/29/12) BEES (Allergy, Unknown, UNKNOWN, 08/28/12) Scheduled Citalopram (Citalopram) 20 Mg Tablet 20 MG PO DAILY Pnv with Ca,No.74/Iron/FA (Niva-Plus Tablet) 27 Mg Iron-1 Mg Tablet 1 TAB PO DAILY Scheduled PRN Albuterol Sulfate (Ventolin HFA Inhaler) 200 Puff/18 Gm Inhaler 2 PUFFS IH Q4H PRN PRN For Wheezing Hydrocodone-Acetaminophen 7.5-325 mg (Hydrocodone-Acetaminophen 7.5-325 mg) 1 Each Tablet 1 TAB PO q6-8h PRN PRN For Pain hydrOXYzine Hcl (HydrOXYzine Hcl) 25 Mg Tablet 1-2 TAB PO TID PRN PRN For Anxiety General Time Seen by MD: 18:20 Chief Complaint Sore throat Hx Obtained From: Patient Arrived By: Walk-in Onset Occurred: 4 days ago Symptom Duration: Since onset Recent Healthcare: Recent doctor visit, Recent hospitalization Similar Sx Previous: No Past Medical History Past Medical History Chronic back pain on opiates. hX of UTI during prior . Patient visited ED on 12/12/16 for vaginal bleeding. Reports: Asthma Past Surgical History C-spine 7 fusion surgery. Family History Reports: Cancer Smoking History Current Some Day Smoker Social History Alcohol Use: "Social" Drug Use: THC Other Social History: Good social support, , Lives with children, Local resident Ambulatory Status Independent Review of Systems Ears / Nose / Throat: Reports: Sore throat Respiratory: Reports: Non-productive cough, Denies: Shortness of breath GI: Denies: Abdominal pain, Nausea, Vomiting Skin: Denies Rash Allergy / Immune: Reports: Rhinorrhea Neurologic: Reports: Headache Complete sys rev & neg: except as marked. Cardiovascular: Denies: Chest pain Physical Exam Initial Vital Signs Vital Signs (First) Date Time Temp Pulse Resp B/P Pulse Ox O2 Delivery O2 Flow Rate FiO2 03/26/17 15:02 36.5 68 17 116/72 100 Room Air Initial VS: Reviewed General/Constitutional: Awake, Alert ENT: Atraumatic, Airway patent, Mucous membranes moist erythematous oral pharynx Respiratory / Chest: Atraumatic, Breath sounds = bilat, No respiratory distress expiratory wheezing and rhonchi Head / Eyes: Atraumatic, Normocephalic, PERRL, EOMI Neck: Atraumatic, Supple, Full range of motion Cardiovascular: Heart rate NL, Regular rhythm, Heart sounds NL Abdomen: Atraumatic, Soft, Non-tender Skin: Atraumatic, Color NL, No rash, Warm, Dry Neurologic: Oriented X3, Speech NL, No motor deficits, No sensory deficits Back: Atraumatic, Full range of motion Upper Extremity / MS: Atraumatic, Full range of motion Lower Extremity / Pelvis / MS: Atraumatic, Full range of motion Psychiatric: Affect NL, Mood NL Interpretation & Diagnostics Pulse Oximetry Interpretation Pulse Oximetry Interpretation: 100% on room air Pulse Oximetry: Pulse Ox normal Re-Eval/Medical Decision Med Decision/Clinical Course This is a very delightful 28 week 31-year-old female who presents with sore throat cough and wheeze. Symptoms first started as a scratchy throat with painful swallowing. The infection seemed to move down into her chest and she has had cough with green sputum production. She now is pain when she swallows and pain when she coughs. She does not have shortness of breath. She does not have pain with deep breathing rather only with coughing. No sudden onset symptoms consistent with pulmonary emboli. She had diffuse wheezes bilaterally and an erythematous throat. She was given antibiotics, steroids a single dose of hydrocodone and albuterol. She looked and felt much better. Her lungs were clear. Her cough had lessened significantly. She is able take a nice deep breath without pain. I considered pulmonary emboli very unlikely. Pulmonary embolus rule out criteria have been met. She is young, she is not had any recent surgery or prolonged travel she has no signs of DVT and she is not hypoxic, tachypneic or tachycardic. She does not have any chest pain. She will be treated with bronchodilators and a course of Zithromax. Three-day course of prednisone. Short course of [place] for the cough related pain. I consulted with Dr. Ace. He will follow up with her on the outpatient basis. Routine opiate and bronchitis warnings were given. Source of Hx: Old records Re-Evaluation/Progress : Time of Eval: 19:40 Patient Status: Condition improved Re-Evaluation/Progress Note: Pt rechecked, who is comfortable. Her lungs are clear with no wheeze, and she is pain free. The diagnosis and plan for discharge are discussed. The pt understands and agrees with the plan. All questions are addressed at this time. Consultation : Referral / Consult Name: Andrea Farmer MD Call Returned at: 20:07 Supervisor Wet Pour: Will see in office, Agrees with eval, Agrees with plan Note: Spoke with Dr. Marshall, PCP, regarding pt's case. Dr. Farmer agrees with the plan and will follow up with the pt in the office. Counseled Regarding: Diagnosis, Need for follow-up, When/why to return to ED Discharge & Departure Impression: Primary Impression: Acute bronchitis with bronchospasm Disposition: Home Discharge Condition All VS Reviewed: Yes Condition: Stable Patient Instructions: Acute Bronchitis (ED), (DC) Additional Instructions: I strongly recommend that you stop smoking. You have bronchitis with bronchospasm. Zithromax Z-Angelito as instructed. Prednisone daily for 3 days. Albuterol 2 puffs every 2-3 hours as needed. [place] one to 2 every 6 hours as needed for cough and the cough related pain. Let us your manager community know that were prescribed this medication especially if you go to labor. Use the medication sparingly. Call your doctor tomorrow morning to set up a follow-up. Do not drive or drink alcohol or consume acetaminophen while taking the [place]. Return if any problems or any new or worrisome symptoms. Referrals: Anup Nance DO (PCP) Santos Attestation Portions of this note were transcribed by Leah Hampton. I, Dr. Gage personally performed the history, physical exam and medical decision-making; I reviewed and confirmed the accuracy of the information in the transcribed note. Signed by: Santos Winston, 03/26/2017 and 2007. copies to: Anup Nance DO Beia, Todd P DO Mar 26, 2017 18:21 LEAH HAMPTON Mar 26, 2017 18:48
[2017-03-26] MEDS ORDERED: Albuterol HFA 60 Puff 8 Gm Inhaler INHALATION PRN (18:30)
[2017-03-26] MEDS ORDERED: HYDROcodone-APAP 5-325 mg Tablet PO ONE (18:30)
[2017-03-26] MEDS ORDERED: Dexamethasone 20 mg/2 mL Oral Solution PO ONE (18:30)
[2017-03-26] MEDS ORDERED: Albuterol 2.5 mg/3 mL Inhalation Solution NEB ONE (18:30)
[2017-03-26 19:03] VITALS: PULSE 80; RESP 18; O2SAT 98
[2017-03-26] MEDS ORDERED: Albuterol HFA 200 Puff Inhaler (Vent Pts Only) INHALATION PRN (19:30)
[2017-03-26 19:57] VITALS: BP 125/70; PULSE 84; RESP 17; O2SAT 100
== END 2017-03-26 19:58 | disposition home or self-care (01) ==
LOC: SED 14:46
DX: O99.512 Diseases of the respiratory system complicating pregnancy, second trimester (principal); J20.9 Acute bronchitis, unspecified; R51 Headache; J45.909 Unspecified asthma, uncomplicated; F17.200 Nicotine dependence, unspecified, uncomplicated; Z3A.28 28 weeks gestation of pregnancy; Z88.1 Allergy status to other antibiotic agents; Z88.8 Allergy status to other drugs, medicaments and biological substances; Z91.048 Other nonmedicinal substance allergy status; Z91.040 Latex allergy status
CPT/HCPCS: 87880; 94640; 99284; J7613

== ENCOUNTER 2017-04-16 10:21 | Emergency (ER) | payer OTHER ==
[~2017-04-16] VITALS: Ht 167.6 cm; Wt 74.5 kg
[~2017-04-16 10:21] MED LIST changes: +CITA20TA11 PO; +HYDR-656 PO; -ONDA4TAB9 PO; -SUMA100T2 PO
[2017-04-16 10:32] VITALS: BP 106/65; PULSE 71; RESP 13; O2SAT 98
--- NOTE | 2017-04-16 11:45 | ED.REPORT ---
HPI-Dyspnea / Wheezing Date of Service Apr 16, 2017 ED Provider: Mariel Weeks MD 31-year-old (31 weeks) female presents the emergency department today with concern for nausea/vomiting shortness of breath. She states she was in the emergency department 3 weeks ago and was treated with a five-day course of azithromycin as well as a burst and taper prednisone. She states that while she was on the hepatic she felt considerably better and then when the antibiotic ended her symptoms of his of breath returned, as well as her cough. Today in the emergency department she does not have a fever however she states that she has had multiple fevers over the last couple weeks. 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 She notes on her own skin multiple lesions on the limbs and torso which have lasted for over a month and are draining purulent fluid. She is concerned for pneumonia and some sort of disseminated MRSA infection at this time. Nursing Notes Stated Complaint: 31 WEEKS /BRONCHITIS Chief Complaint: Respiratory Complaints Nursing Notes Reviewed: Yes Allergies: Coded Allergies: clindamycin (Verified Allergy, Severe, HIVES, 01/16/17) latex (Verified Allergy, Severe, HIVES, 03/17/13) Cephalexin Monohydrate (Verified Allergy, Intermediate, vomiting/migraine , 03/17/13) tramadol (Verified Allergy, Intermediate, MIGRAINES, 10/17/15) TAPE (Verified Allergy, Unknown, UNKNOWN, 03/17/13) levofloxacin (Verified Allergy, Unknown, 07/06/14) Penicillins (Verified Adverse Reaction, Severe, JITTERY, FAINT, HIVES, ) Uncoded Allergies: BANANAS (Allergy, Unknown, 08/29/12) BEES (Allergy, Unknown, UNKNOWN, 08/28/12) Scheduled Albuterol HFA (Proair HFA) 8.5 Gm Hfa.aer.ad 2 PUFFS INHALATION Q4H Citalopram (Citalopram) 20 Mg Tablet 20 MG PO DAILY Pnv with Ca,No.74/Iron/FA (Niva-Plus Tablet) 27 Mg Iron-1 Mg Tablet 1 TAB PO DAILY Prednisone (PredniSONE) 20 Mg Tablet 20 MG PO DAILY Please take 40 mg per day for 2 days, take 20 mg per day for 2 days, then take 10 mg per day for 2 days. Scheduled PRN Albuterol Sulfate (Ventolin HFA Inhaler) 200 Puff/18 Gm Inhaler 2 PUFFS IH Q4H PRN PRN For Wheezing Hydrocodone-Acetaminophen 7.5-325 mg (Hydrocodone-Acetaminophen 7.5-325 mg) 1 Each Tablet 1 TAB PO q6-8h PRN PRN For Pain hydrOXYzine Hcl (HydrOXYzine Hcl) 25 Mg Tablet 1-2 TAB PO TID PRN PRN For Anxiety General Time Seen by MD: 10:55 Chief Complaint Cough, Shortness of breath, Wheezing Hx Obtained From: Patient Sudden in Onset?: No Onset Occurred: 1 week ago Context of Onset: Bronchitis Symptom Duration: Constant Severity: Current: No pain currently Recent Healthcare: Recent doctor visit Risk Factors CAD Risk Stratification Risk factors reviewed PE Risk Stratification Risk factors reviewed Past Medical History Past Medical History Chronic back pain on opiates. hX of UTI during prior . Patient visited ED on 12/12/16 for vaginal bleeding. Reports: Asthma Past Surgical History C-spine 7 fusion surgery. Family History Reports: Cancer Smoking History Current Some Day Smoker Social History Alcohol Use: "Social" Drug Use: THC Other Social History: Good social support, , Lives with children, Local resident Ambulatory Status Independent Review of Systems Constitutional: Reports: Chills, Fever Respiratory: Reports: Pleuritic pain, Prod cough, clear, Shortness of breath, Wheezing Cardiovascular: Reports: Chest pain Complete sys rev & neg: except as marked. Physical Exam Physical Exam Notes: Erythematous 2 cm lesion on the anterior thigh of the left leg 2 cm lesion on right flank of the abdomen No purulent drainage observed from either lesion. Initial Vital Signs Vital Signs (First) Date Time Temp Pulse Resp B/P Pulse Ox O2 Delivery O2 Flow Rate FiO2 04/16/17 10:32 36.8 71 13 106/65 98 Room Air Initial VS: Reviewed, Vital signs normal Head / Eyes: Atraumatic, Normocephalic, PERRL ENT: Mucous membranes moist, Conjunctiva normal, No scleral icterus Abdomen / GI: Soft, Non-tender, No guarding, No rebound, No distention Extremities: Vascular intact, Neuro intact, No swelling, No tenderness Skin: Warm, Dry, No cyanosis Neurologic: Alert, Oriented, Nonfocal Psychiatric: Mood/affect normal, Behavior normal, Normal thought content Respiratory / Chest: Atraumatic, Breath sounds = bilat, No respiratory distress , No rales, No rhonchi, No retractions, No stridor Wheezing / Retractions: Positive: Wheezing expiratory, Wheezing mild Rales / Rhonchi: Positive: Rhonchi diffuse Chest Wall / Ribs: Positive: Sternum tender Cardiovascular: Heart rate NL, Regular rhythm, Heart sounds NL, No murmurs, No rubs Interpretation & Diagnostics Bedside ultrasound showed active fetus with heart rate in 120-130 range Re-Eval/Medical Decision Med Decision/Clinical Course Based on my physical exam findings the patient's symptoms are most likely related to her asthma. She is nontoxic appearing, vitals are normal, and I am not concerned for infection at this time. Based on this patient's history of repeated contact with someone who has proven MRSA infection, it is likely that these lesions are MRSA related. However, the treatment for this is thorough washing with Dial antibacterial soap. This was explained to the patient thoroughly, and she does not need antibiotics for these infections at this time. Counseled Regarding: Diagnosis, Lab results, Need for follow-up, When/why to return to ED Discharge & Departure Impression: Primary Impression: Asthma Asthma severity: mild persistent Asthma complication type: with acute exacerbation Qualified Code: J45.31 - Mild persistent asthma with (acute) exacerbation Additional Impressions: Cough Intrauterine Disposition: Home Discharge Condition All VS Reviewed: Yes Condition: Stable Patient Instructions: Asthma (ED) Additional Instructions: You came in today with shortness of breath and symptoms of fatigue and general weakness. Since her recently treated with antibiotics it is unlikely that he have a recurrent infection at this point, based on my physical exam I believe your symptoms are related to an acute exacerbation of her asthma, and a chest x- ray that workup are not needed at this time. You were given a nebulized treatment of albuterol here in the hospital today, reported decrease of symptoms since that time. We will send you home with prednisone which will take the following formula: 40 mg for 2 days, 20 mg for 2 days, 10 mg 2 days. We will also refill your albuterol medication to take at home as needed. Her baby was visualized on a bedside ultrasound exam here in the hospital today and appears to be doing well. Please follow-up with OB at scheduled appointments or sooner if you deem appropriate. Return to the emergency department if you suddenly feel short of breath or experience high fever or vomiting. Referrals: Anup Nance DO (PCP) Attending Statement seen and examined No clinical indication infection/pneumonia. dry cough post URI suggestive of inadequately treated asthma. steroid taper and MDI use. Discussed no need for imaging today. she concerned with some superficial areas/folliculitis that may be MRSA. discussed probablity that they were. suggested antibacterial soap and topical abx. No indication for oral antibiotics and no current cellulitis. bedside us: full breech presentation with FHR in 120-130 range, normal volumes amniotic fluid, good tone and movement. agree with documentation as above Petey Quinn DO Apr 16, 2017 11:45 Mariel Weeks MD Apr 16, 2017 15:44
[2017-04-16] MEDS ORDERED: Albuterol 2.5 mg/3 mL Inhalation Solution NEB ONE (11:50)
[2017-04-16] MEDS ORDERED: PRE20 PO (11:53)
[2017-04-16 12:18] VITALS: PULSE 61; RESP 17; O2SAT 100
[2017-04-16] MEDS ORDERED: ALBU8.5H2 INHALATION (12:37)
[2017-04-16 13:09] VITALS: BP 100/45; PULSE 72; O2SAT 100
== END 2017-04-16 13:03 | disposition home or self-care (01) ==
LOC: SED 10:21
DX: O99.513 Diseases of the respiratory system complicating pregnancy, third trimester (principal); J45.31 Mild persistent asthma with (acute) exacerbation; O99.323 Drug use complicating pregnancy, third trimester; F17.200 Nicotine dependence, unspecified, uncomplicated; Z3A.31 31 weeks gestation of pregnancy; Z88.0 Allergy status to penicillin; Z88.1 Allergy status to other antibiotic agents; Z88.5 Allergy status to narcotic agent; Z91.040 Latex allergy status
CPT/HCPCS: 93005; 94664; 94799; 99285; J7613

== ENCOUNTER 2017-04-25 10:46 | Emergency (ER) | payer OTHER ==
[~2017-04-25] VITALS: Ht 167.6 cm; Wt 75.5 kg
[~2017-04-25 10:46] MED LIST changes: +ALBU8.5H2 INHALATION; +PRE20 PO
[2017-04-25 10:55] VITALS: BP 137/83; PULSE 98; RESP 18; O2SAT 97
--- NOTE | 2017-04-25 11:33 | ED.REPORT ---
HPI-Psychiatric Illness Date of Service Apr 25, 2017 ED Provider: History of Present Illness: wants to take away stress, feels drained. shari is ob. 32.5 weeks . 4th . has 5 children at home14,13,10, (2) 10 year old's, 5. 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 Here with cousins Nursing Notes Stated Complaint: MENTAL EVAL Chief Complaint: Psychiatric Complaint Nursing Notes Reviewed: Yes Allergies: Coded Allergies: clindamycin (Verified Allergy, Severe, HIVES, 01/16/17) latex (Verified Allergy, Severe, HIVES, 03/17/13) Cephalexin Monohydrate (Verified Allergy, Intermediate, vomiting/migraine , 03/17/13) tramadol (Verified Allergy, Intermediate, MIGRAINES, 10/17/15) TAPE (Verified Allergy, Unknown, UNKNOWN, 03/17/13) levofloxacin (Verified Allergy, Unknown, 07/06/14) Penicillins (Verified Adverse Reaction, Severe, JITTERY, FAINT, HIVES, ) Uncoded Allergies: BANANAS (Allergy, Unknown, 08/29/12) BEES (Allergy, Unknown, UNKNOWN, 08/28/12) Scheduled Albuterol HFA (Proair HFA) 8.5 Gm Hfa.aer.ad 2 PUFFS INHALATION Q4H Citalopram (Citalopram) 20 Mg Tablet 20 MG PO DAILY Pnv with Ca,No.74/Iron/FA (Niva-Plus Tablet) 27 Mg Iron-1 Mg Tablet 1 TAB PO DAILY Prednisone (PredniSONE) 20 Mg Tablet 20 MG PO DAILY Please take 40 mg per day for 2 days, take 20 mg per day for 2 days, then take 10 mg per day for 2 days. Scheduled PRN Albuterol Sulfate (Ventolin HFA Inhaler) 200 Puff/18 Gm Inhaler 2 PUFFS IH Q4H PRN PRN For Wheezing Hydrocodone-Acetaminophen 7.5-325 mg (Hydrocodone-Acetaminophen 7.5-325 mg) 1 Each Tablet 1 TAB PO q6-8h PRN PRN For Pain hydrOXYzine Hcl (HydrOXYzine Hcl) 25 Mg Tablet 1-2 TAB PO TID PRN PRN For Anxiety General Time Seen by MD: 11:32 Chief Complaint Other (overwhelmed) Hx Obtained From: Patient Onset Occurred: More than a week ago... (4 weeks) Symptom Duration: Since onset Risk-Psychiatric Illness Risk Notes: hx of post depression and depression hx since 2006 Suicide Risk Stratification Suicide Risk Factors - Adult: : Close associate suicideNo: Access to firearms, Alcohol use, Family Hx of Suicide, Previous attempt, Prior psych admission, Substance abuse RF Statements: Risk factors reviewed Past Medical History Past Medical History Chronic back pain on opiates. hX of UTI during prior . Patient visited ED on 12/12/16 for vaginal bleeding. Reports: Asthma Past Surgical History C-spine 7 fusion surgery 2009, right knee 2012 Family History Reports: Cancer Smoking History Current Every Day Smoker (2 cig a day for 6 years) Social History last use thc last night Alcohol Use: Denies alcohol use Drug Use: THC Other Social History: Good social support, , Lives with children, Local resident Occupation lives with 04/25/2017 Ambulatory Status Independent Review of Systems Basic Review of Systems Eyes: Vision NL, No discharge Musculoskeletal: No extremity swelling, No extremity pain, Full range of motion , Joints NL Allergy / Immune: No allergy Physical Exam Initial Vital Signs Vital Signs (First) Date Time Temp Pulse Resp B/P Pulse Ox O2 Delivery O2 Flow Rate FiO2 04/25/17 10:55 37.2 98 18 137/83 97 Room Air Initial VS: Reviewed, Vital signs normal Head / Eyes: Atraumatic, Normocephalic, PERRL ENT: Mucous membranes moist, Conjunctiva normal, No scleral icterus Neck: Supple, Non-tender, Full range of motion Respiratory: Breath sounds normal, Clear to auscultation, No respiratory distress Cardiovascular: Regular rate & rhythm, Heart sounds normal, Intact distal pulses Abdomen / GI: Soft, Non-tender, No guarding, No rebound, No distention Back: No CVA tenderness Lymphatic: No lymphadenopathy Extremities: Vascular intact, Neuro intact, No swelling, No tenderness Skin: Warm, Dry, No cyanosis General/Constitutional: Awake, Alert, No acute distress, Well appearing, Well developed, Well hydrated Neurologic: Oriented X3, Speech NL, No motor deficits, No sensory deficits, CN II - XII intact Psychiatric: Affect NL, Mood NL, Not suicidal, Not homicidal, No hallucinations , Cognitive function NL Respiratory / Chest: Atraumatic, Breath sounds NL, Breath sounds = bilat, No respiratory distress, No rales, No rhonchi, No wheezing Cardiovascular: Heart rate NL, Regular rhythm, Heart sounds NL, Peripheral circulation NL Interpretation & Diagnostics Lab Results Interpretation Result Diagram: 04/25/17 1225 04/25/17 1225 Test 04/25/17 12:25 04/25/17 12:49 White Blood Count 16.3th/mm3 (3.8-10.1) Red Blood Count 3.36mil/mm3 (3.90-5.20) Hemoglobin 10.7g/dL (12.0-15.6) Hematocrit 33.5% (35.0-46.0) Mean Corpuscular Volume 99.7fL (81-100) Mean Corpuscular Hemoglobin 31.8pg (27.0-35.0) Mean Corpuscular Hemoglobin Concent 31.9% (32.0-37.0) Red Cell Distribution Width 13.2% (12.3-15.4) Platelet Count 268bil/L (150-400) Neutrophils (%) (Auto) 77.5% (40-74) Lymphocytes (%) (Auto) 13.7% (14-46) Monocytes (%) (Auto) 6.1% (4-12) Eosinophils (%) (Auto) 1.2% (0-5) Basophils (%) (Auto) 0.2% (0-3) Sodium Level 134mEq/L (134-144) Potassium Level 4.3mEq/L (3.5-5.2) Chloride Level 100mEq/L (97-108) Carbon Dioxide Level 22mmol/L (18-29) Blood Urea Nitrogen 5mg/dL (6-20) Creatinine 0.43mg/dL (0.57-1.00) Estimat Glomerular Filtration Rate 242mL/min (>59) Glucose Level 104mg/dL (60-99) Calcium Level 8.6mg/dL (8.5-10.1) Total Bilirubin 0.8mg/dL (0.0-1.2) Aspartate Amino Transf (AST/SGOT) 11U/L (0-50) Alanine Aminotransferase (ALT/SGPT) 5U/L (0-32) Alkaline Phosphatase 82U/L (25-150) Total Protein 6.0g/dL (6.4-8.4) Albumin 3.5g/dL (3.4-5.0) Thyroid Stimulating Hormone (TSH) 2.860uIU/mL (0.450-4.500) Urine Color Yellow (YELLOW) Urine Appearance Clear (CLEAR,HAZY) Urine pH 7.0 (5.0-8.0) Urine Specific Mona 1.015 (1.003-1.035) Urine Protein Negativemg/dL (NEG,TRACE) Urine Glucose (UA) Negativemg/dL (NEGATIVE) Urine Ketones Negativemg/dL (NEGATIVE) Urine Occult Blood Small (NEGATIVE) Urine Nitrite Negative (NEGATIVE) Urine Bilirubin Negative (NEGATIVE) Urine Urobilinogen Normalmg/dL (NORMAL) Urine Leukocyte Esterase Negative (NEGATIVE) Urine RBC 3-10/hpf (0-2) Urine WBC 0-5/hpf (0-5) Urine Epithelial Cells Occasional/hpf (NONE-MOD) Urine Crystals None seen (NONE SEEN) Urine Bacteria Moderate/hpf (NONE-FEW) Urine Hyaline Casts None/lpf (NONE) Urine Granular Casts None seen (NONE SEEN) Urine Waxy Casts None seen (NONE SEEN) Urine Red Blood Cell Casts None seen (NONE SEEN) Urine White Blood Cell Casts None seen (NONE SEEN) Urine Mucus None seen (None Seen) Urine Trichomonas None seen (NONE SEEN) Urine Yeast None (NONE SEEN) Urinalysis Comment None Urine Culture Reflexed Indicated Lab Results Interpretation: u tox is positive for THC, opiates, benzo's and oxy. Re-Eval/Medical Decision Med Decision/Clinical Course patient has meet with social work and is attempting placement. Urine tox is run and is positive for benzo's, THC, opiates and oxy. Patient is upset when informed of the results. States she only smokes THC and takes vicodin. She has no idea of how the urine turned positive for those drugs. Can get her into [place] for drug treatment but patient states she does not have any addiction issues.No sign of impending delivery or urine infection. Discuss u tox findings with her primary care provider Dr. Ace. He states he will continue to work with her. Discharge & Departure Impression: Primary Impression: Intrauterine Disposition: Home Patient Instructions: (ED), Diet (GEN), at 31 to 34 Weeks (ED) Referrals: Andrea Farmer MD EDSupervising Provider for APC: Fausto Kaiser MD copies to: Andrea Farmer MD, Sue ARNP Apr 25, 2017 11:33
--- NOTE | 2017-04-25 11:58 | NUR ---
FHTs 130's, movement palpated. Pt reports michele he with occasional UC, no UC's currently.
[2017-04-25 12:34] LABS: BASOPHILS % (AUTO) 0.2 % (0-3); EOSINOPHILS % (AUTO) 1.2 % (0-5); MONOCYTES % (AUTO) 6.1 % (4-12); Mean Corpuscular Hemoglobin 31.8 pg (27.0-35.0); Mean Corpuscular Volume 99.7 fL (81-100); NEUTROPHILS % (AUTO) 77.5 % (40-74); Platelet Count 268 bil/L (150-400)
[2017-04-25 13:32] LABS: APPEARANCE,URINE CLEAR (CLEAR,HAZY); COLOR,URINE YELLOW (YELLOW); OCCULT BLOOD,URINE SMALL (NEGATIVE); UROBILINOGEN,URINE NORMAL (NORMAL)
== END 2017-04-25 13:45 | disposition left against medical advice (07) ==
LOC: SED 10:46
DX: O99.323 Drug use complicating pregnancy, third trimester (principal); F12.10 Cannabis abuse, uncomplicated; F11.10 Opioid abuse, uncomplicated; F13.10 Sedative, hypnotic or anxiolytic abuse, uncomplicated; O99.333 Smoking (tobacco) complicating pregnancy, third trimester; Z87.440 Personal history of urinary (tract) infections; Z3A.32 32 weeks gestation of pregnancy; J45.909 Unspecified asthma, uncomplicated; Z88.0 Allergy status to penicillin; Z88.1 Allergy status to other antibiotic agents; Z88.5 Allergy status to narcotic agent; Z91.040 Latex allergy status

== ENCOUNTER 2017-06-06 20:17 | Observation (INO) | payer OTHER ==
[~2017-06-06] VITALS: Ht 167.6 cm; Wt 65.8 kg
[2017-06-07 00:41] LABS: BASOPHILS % (AUTO) 0.2 % (0-3); EOSINOPHILS % (AUTO) 1.4 % (0-5); MONOCYTES % (AUTO) 6.3 % (4-12); Mean Corpuscular Volume 93.4 fL (81-100); NEUTROPHILS % (AUTO) 70.9 % (40-74); Platelet Count 268 bil/L (150-400)
[2017-06-07] MEDS ORDERED: Ondansetron 2 mg/mL 2 mL Inj IVPUSH PRN (05:05)
[2017-06-07] MEDS ORDERED: HYDROcodone-APAP 5-325 mg Tablet PO PRN (06:05)
--- NOTE | 2017-06-07 07:13 | PCM.DIOB ---
Obstetrical Disch Instruction Date of Service: Jun 07, 2017 Dates of Hospitalization Date of Hospital Admission Jun 07, 2017 at 00:03 Providers Admitting Physician: Andrea Farmer MD Primary Care Physician: Andrea Farmer MD Attending Physician: Andrea Farmer MD Discharge Diagnosis Discharge Diagnosis Latent Labor at term Problems: Diet Discharge Diet: No restrictions Activity Discharge Activity-General: No restrictions Dressing and Incisional Care Hygiene: May shower Additional Instructions Discharge Instructions f/u in 4 days (06/11/17) and as needed Follow Up Plan Follow Up Plan f/u with me in clinic on 06/11/17 and as needed Follow-up Provider (F9): Andrea Farmer MD Follow-up appointment: Days (4) Call your provider for: Other (Increasing signs of Labor) Andrea Farmer MD Jun 07, 2017 07:13
[2017-06-07] MEDS ORDERED: MORP15TA PO (07:17)
--- NOTE | 2017-06-07 20:09 | HP ---
[address] [address] HISTORY AND PHYSICAL PATIENT: JAREK CORBIN : 1985 MR#: [id number] ADMIT: 06/07/2017 JOB ID: [id number] ADMISSION HISTORY AND PHYSICAL AND DISCHARGE SUMMARY: The patient was admitted on June 07 and discharged later in the same day on June 07. CHIEF COMPLAINT: Frequent severe painful contractions. HISTORY OF PRESENT ILLNESS: This is an obstetrical patient of mine who is a 31-year-old, four, para three, at 38 and 5/7 weeks estimated gestational age who presented to labor and delivery complaining of frequent painful uterine contractions. She was found to be alejandro about every 3-4 minutes with very strong contractions and cervical exam of about 3 cm but over the course of an hour or two did not really have any change in her cervix, and so preparations were being made to send her home, but then she had a very deep 1-2 minute long deceleration in heart tracing, and it was decided to admit her for observation overnight. ADMITTING DIAGNOSIS: 1. Latent labor with frequent painful contractions. 2. Nonreassuring heart tracing. PAST MEDICAL HISTORY: Significant for multiple issues to include migraine headaches, anxiety and depression, kidney stones, mild asthma, recurrent sinusitis and allergy problems, chronic back pain. PAST SURGICAL HISTORY: History of cervical spine fusion in 2009 and meniscal surgery on the right knee in 2011. Otherwise she has no history of any cardiac problems or gastrointestinal problems or neurological problems other than the migraines. No history of diabetes or thyroid disease. She has never had any transfusions. PAST SURGICAL HISTORY: Significant for the spinal fusion as well as the right knee surgery mentioned above. OBSTETRICAL HISTORY: The patient has had three prior spontaneous vaginal deliveries, one in 2002, another in 2006, and the last one in 2010. They were unremarkable and she delivered at term with all three of them. This has been complicated with spotty followup and general noncompliance. Also chronic back pain for which she has taken Vicodin on a fairly regular basis up to 7.5 mg tablets 4-6 times per day, although she has not seemed to have taken any from me anyway in the last couple of months, but she has not seen me or any other obstetrical provider for about two months. She has bounced in and out of the Center on many occasions though complaining of contractions and found not to be in labor. She has also had another complication of about a month ago had a significant wound infection in her left leg that turned out to be a group A beta-hemolytic strep. The abscess in her leg was treated with I and D, and has resolved. LABORATORY: Her initial labs have been unremarkable. She never did get her 28-week labs done at all. She also did not get her MSAFP test performed. SOCIAL HISTORY: The patient lives in [place] with her four kids. 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 CURRENT MEDICATIONS: 1. vitamins. 2. Citalopram 20 mg a day. 3. Hydroxyzine 25 mg as needed. ALLERGIES: THE PATIENT HAS AN ALLERGY TO PENICILLIN, KEFLEX, CLINDAMYCIN, LATEX, AND PAPER TAPE. FAMILY HISTORY: Significant for brother with diabetes. Cervical cancer in a sister. Breast cancer in her mother. Otherwise is noncontributory. REVIEW OF SYSTEMS: See HPI above. The patient denies any recent illness. No chest pain, palpitations, or shortness of breath. No swelling in her feet. She has felt the baby moving daily. These contractions that she has been having have been off and on for a month or so, and she had been doing fairly well until approximately 6 hours prior to her presentation when they started up again in earnest and became very painful. Denies any vaginal discharge. OBJECTIVE: Well-developed thin woman in no apparent distress between contractions anyway. Her blood pressure is 121/67, pulse of 57. Weight is 166 pounds. Lungs are clear to auscultation bilaterally, with good air movement. Heart is regular rate and rhythm. No significant murmurs heard. Abdomen is gravid, otherwise benign. Extremities show no significant edema. Normal deep tendon reflexes. Cervical exam upon admission was 3 cm, 50% effaced, and about - 1 position, very posterior. HOSPITAL COURSE: The patient was admitted for observation and an IV was started. Urine drug test was performed and was positive for marijuana but otherwise negative. CBC showed an elevated white blood cell count of 17.4, hematocrit is mildly low at 32.5. She was treated aggressively with IV fluids and had very painful contractions throughout the night, although sometimes they would spread out and then sometimes be every 2-3 minutes. It seemed to respond intermittently to being on the birthing ball or being in the bathtub. There were no further concerning heart tracing decelerations after the one that led to her admission. She was monitored for 7 hours without seeing any heart tracing concerns. Her cervix remained unchanged throughout this time, still at 3 cm, 50% effaced, at - 1 position, with the baby in vertex. Her vital signs remained stable throughout this time as well. I came in in the morning and discussed the circumstances with the patient. She was told that she does not appear to be in labor since her cervix had not changed despite regular contractions throughout the night. The heart tracing now appears to be reassuring and has not had any further concerning episodes. The patient was discharged home in stable and improved condition. She was given a prescription for one tablet of morphine 15 mg to use in case she had severely painful contractions again and this might help her relax enough that her cervix might change. Was told to follow up with the Center if she had increasing pelvic pressure and increasing pain of contractions. Arrangements will be made for her to follow up with me in clinic on June 11. The patient was discharged home in stable condition. DISCHARGE DIAGNOSIS: 1. Latent labor. 2. heart tracing reactive and reassuring. PLAN: Follow up with me on June 11, otherwise as needed. Labor precautions given.
== END 2017-06-07 07:40 | disposition home or self-care (01) ==
LOC: FBCO 20:17 → FBC 06-07 00:03
PROVIDERS: ADMIT Family Medicine; ATTEND Family Medicine
DX: O47.1 False labor at or after 37 completed weeks of gestation (principal); Z3A.38 38 weeks gestation of pregnancy; O76 Abnormality in fetal heart rate and rhythm complicating labor and delivery; G43.909 Migraine, unspecified, not intractable, without status migrainosus; F41.9 Anxiety disorder, unspecified; F32.9 Major depressive disorder, single episode, unspecified; J45.909 Unspecified asthma, uncomplicated; M54.9 Dorsalgia, unspecified; F12.90 Cannabis use, unspecified, uncomplicated
CPT/HCPCS: 36415; 85025; 87641; G0378; G0463; G0480

== ENCOUNTER 2017-06-08 22:22 | Inpatient (IN) | payer OTHER ==
[~2017-06-08] VITALS: Ht 167.6 cm; Wt 75.3 kg
[~2017-06-08 22:22] MED LIST changes: +MORP15TA PO
[2017-06-08] MEDS ORDERED: Oxytocin 10 Unit/mL Inj ONE (22:40)
[2017-06-08] MEDS ORDERED: Oxytocin 30 Units/500 mL LR Premix IV ONE (22:48)
[2017-06-08] MEDS ORDERED: Oxytocin 30 Units/500 mL LR 30 UNITS in IV Premix 1 EACH IV PRN (23:30)
[2017-06-08] MEDS ORDERED: Hemorrhage Kit, Post Partum XX ONE (23:30)
[2017-06-08] MEDS ORDERED: Sodium Chloride LOK Flush 10 mL Syringe IVFLUSH PRN (23:30)
[2017-06-08] MEDS ORDERED: Methylergonovine 0.2 mg/mL Inj IM PRN (23:30)
[2017-06-08] MEDS ORDERED: Oxytocin 10 Unit/mL Inj IM PRN (23:30)
[2017-06-08] MEDS ORDERED: Ondansetron 2 mg/mL 2 mL Inj IVPUSH PRN (23:30)
[2017-06-08] MEDS ORDERED: Carboprost 250 mCg/mL Inj IM PRN (23:30)
[2017-06-08] MEDS ORDERED: Lactated Ringer's 1,000 ML IV PRN (23:30)
[2017-06-08] MEDS ORDERED: fentaNYL-PF 50 mCg/mL 2 mL Inj IVPUSH PRN (23:30)
[2017-06-08 23:46] LABS: Mean Corpuscular Hemoglobin 31.2 pg (27.0-35.0); Mean Corpuscular Volume 94.1 fL (81-100)
[2017-06-09] MEDS ORDERED: fentaNYL 2 mCg/mL-Bupivicaine 0.125% 100 mL Premix EPIDURAL ONE (00:01)
[2017-06-09] MEDS: Lactated Ringer's 1,000 ML IV SCH ×6 (00:03→18:46)
[2017-06-09] MEDS ORDERED: Lactated Ringer's 500 ML IV ONE (00:03)
[2017-06-09] MEDS ORDERED: Phenylephrine/NS-PF 100 mCg/mL 5 mL Syringe IVPUSH PRN (00:05)
[2017-06-09] MEDS ORDERED: Ondansetron 2 mg/mL 2 mL Inj IVPUSH PRN (00:05)
[2017-06-09] MEDS ORDERED: Atropine 1 mg/10 mL (Code) Syringe IVPUSH PRN (00:05)
[2017-06-09] MEDS ORDERED: EPHEDrine Sulfate 50 mg/mL Inj IVPUSH PRN (00:05)
[2017-06-09] MEDS ORDERED: fentaNYL 2 mCg/mL-Bupiv 0.125% 100 ML EPIDURAL SCH (00:05)
--- NOTE | 2017-06-09 00:05 | PCM.HPANE ---
Patient Data Surgeon Admitting Provider:Andrea Farmer MD Attending Provider:Andrea Farmer MD Primary Care Physician:Andrea Farmer MD Other Provider: Reason for Visit Term Labor Check TERM LABOR CHECK Ht/WT & BMI Body Mass Index Allergies Coded Allergies: clindamycin (Verified Allergy, Severe, HIVES, 01/16/17) latex (Verified Allergy, Severe, HIVES, 03/17/13) Cephalexin Monohydrate (Verified Allergy, Intermediate, vomiting/migraine , 03/17/13) tramadol (Verified Allergy, Intermediate, MIGRAINES, 10/17/15) TAPE (Verified Allergy, Unknown, UNKNOWN, 03/17/13) levofloxacin (Verified Allergy, Unknown, 07/06/14) Penicillins (Verified Adverse Reaction, Severe, JITTERY, FAINT, HIVES, ) Uncoded Allergies: BANANAS (Allergy, Unknown, 08/29/12) BEES (Allergy, Unknown, UNKNOWN, 08/28/12) Past Anesthesia History Anesthesia History: Denies:: Anesthesia Reactions, Malignant Hyperthermia Diabetes History Hx Diabetes?: No MRSA MRSA: No Medications Hypertension Medication: No Home Meds Incl Beta Abel: No Active Scripts Morphine Sulfate 15 Mg [id number] Mg PO ONCE #1 TABLET Prov:Andrea Farmer MD 06/07/17 Albuterol HFA (Proair HFA)8.5 Gm Hfa.aer.ad2 Puffs INHALATION Q4H #1 INHALER Prov:Petey Quinn DO 04/16/17 Prednisone (PredniSONE)20 Mg [id number] Mg PO DAILY #7 TABLET Ref 0 Please take 40 mg per day for 2 days, take 20 mg per day for 2 days, then take 10 mg per day for 2 days. Prov:Petey Quinn DO 04/16/17 Reported Medications Citalopram 20 Mg [id number] Mg PO DAILY 03/26/17 hydrOXYzine Hcl (HydrOXYzine Hcl)25 Mg Tablet1-2 Tab PO TID PRN For Anxiety 03/26/17 Pnv with Ca,No.74/Iron/FA (Niva-Plus Tablet)27 Mg Iron-1 Mg Tablet1 Tab PO DAILY #30 12/12/16 Albuterol Sulfate (Ventolin HFA Inhaler)200 Puff/18 Gm Inhaler2 Puffs IH Q4H PRN For Wheezing #18 12/12/16 Hydrocodone-Acetaminophen 7.5-325 mg 1 Each Tablet1 Tab PO q6-8h PRN For Pain # AD 12/12/16 History History of ENT Problems?: Yes HEENT History: Positive for:: Sinus Problem (SEASONAL ALLERGIES) Denies:: Abnormal Airway Cataracts Difficult Intubation Dysphagia Glaucoma Hearing Problem TMJ Denture Type: None Teeth Condition: Within Normal Limits Hx of Heart Problems?: Yes Cardiovascular History: Positive for:: Heart Murmur (HX OF A MURMUR IN GRADE SCHOOL.) Denies:: Congestive Heart Failure Hypertension Hx of Respiratory Problem?: Yes Respiratory History: Positive for:: Asthma Pneumonia (HX OF) Denies:: Tuberculosis Use of C-PAP Machine Hx Neurologic Problems?: Yes Neurological History: Positive for:: Headaches Hx of GI Problems?: Yes Gastrointestinal History: Positive for:: Heartburn Hx of Problems?: Yes Genitourinary History: Positive for:: Urinary Tract Infection (DURING .) Female Hx: Denies:: Currently Endometriosis Pelvic Inflammatory Skin History: Denies:: History Skin Disorders? Pressure Ulcers Hx Musculoskeletal Problems?: Yes Musculoskeletal History: Positive for:: Musculoskeletal Trauma (INTERNAL DERANGEMENT RT KNEE=CURRENT PROBLEM) Denies:: Back Injury (C/OF CHRONIC LOWER BACK PAIN) Hx of Psycho/Social Problems?: No Hx Surgeries?: Yes (knee scope) Hx Any Other Health Problems?: Yes Other History: Positive for:: Hospitalization (CHILDBIRTH) Denies:: Cancer Endocrine Disease Thyroid Disease History Blood Transfusions: Denies:: Blood Transfusions Hx Diabetes: No Hx Alcohol Use: NoHx Substance Use: Yes (marijuana) Smoking Status: Current Every Day Smoker Have You Smoked inLast 12 mo: Yes Stop/Bang Treated for Sleep Apnea?: No Do You Have a CPAP Machine?: No PAM Risk Assessment: Low Risk, <3 Yes Risk Assessment Category Category 1A: Patient has history of documented sleep apnea, and HAS NOT received any narcotic, sedative or anesthesia administration during this stay. Category 1B: Patient has history of documented sleep apnea, and HAS received any narcotic , sedative or anesthesia administration during this stay Category 2: Patient has SUSPECTED Obstructive Sleep Apnea, and HAS received any narcotic , sedative or anesthesia administration during this stay. Category 3: Patient has SUSPECTED Obstructive Sleep Apnea and HAS NOT received narcotic, sedative or anesthesia administration during this stay. Category 4: Outpatient in Procedural Areas with known sleep apnea or who screen positive for High Risk via the STOP/BANG questionnaire. Exam Exam General Appearance: Oriented X3 HEENT/AIRWAY: MP 2 Lungs: Normal Air Movement Heart: Regular Rate/Rhythm Meds/Labs/Diagnostics Labs Test 06/08/17 22:52 06/08/17 23:42 Hold Purple Top Tube Received (Received) White Blood Count 21.6th/mm3 (3.8-10.1) Red Blood Count 3.53mil/mm3 (3.90-5.20) Hemoglobin 11.0g/dL (12.0-15.6) Hematocrit 33.2% (35.0-46.0) Mean Corpuscular Volume 94.1fL (81-100) Mean Corpuscular Hemoglobin 31.2pg (27.0-35.0) Mean Corpuscular Hemoglobin Concent 33.1% (32.0-37.0) Red Cell Distribution Width 13.1% (12.3-15.4) Platelet Count 225bil/L (150-400) Plan Impression Patient chart reviewed, patient interviewed and anesthestic plan with risks, benefits, and alternatives discussed, and informed consent obtained. ASA Physical Status: ASA3 Severe Disease Anesthetic Plan: Epidural Bene/Risks/Altern/Consents: Yes HP Complete Prior to Induction: Yes Nick Taylor MD Jun 09, 2017 00:05
[2017-06-09] MEDS: Sodium Chloride LOK Flush 10 mL Syringe IVFLUSH SCH ×3 (00:30→16:30)
[2017-06-09] MEDS ORDERED: Sodium Citrate-Citric Acid 15 mL Solution ONE (01:42)
[2017-06-09] MEDS ORDERED: CeFAZolin 2 Gm/50 mL D5W Duplex Bag IV ONE (01:43)
[2017-06-09] MEDS ORDERED: Carboprost 250 mCg/mL Inj IM PRN (02:50)
[2017-06-09] MEDS ORDERED: Methylergonovine 0.2 mg/mL Inj IM PRN (02:50)
[2017-06-09] MEDS ORDERED: Hemorrhage Kit, Post Partum XX ONE (02:50)
[2017-06-09] MEDS ORDERED: Benzocaine (Dermoplast) 20% 60 Gm Spray TOPICAL PRN (02:50)
[2017-06-09] MEDS ORDERED: Oxytocin 10 Unit/mL Inj IM PRN (02:50)
[2017-06-09] MEDS ORDERED: LANOlin HPA 7 Gm Ointment TOPICAL PRN (02:50)
[2017-06-09] MEDS: Witch Hazel-Glycerin Pads TOPICAL PRN (03:36)
--- NOTE | 2017-06-09 04:16 | HP ---
[address] [address] HISTORY AND PHYSICAL PATIENT: JAREK CORBIN : 1985 MR#: [id number] ADMIT: 06/08/2017 JOB ID: [id number] CHIEF COMPLAINT: Contractions and rupture of membranes. HISTORY OF PRESENT ILLNESS: This is a 31-year-old obstetrical patient of mine who is a 4, para 3 patient, now at 38 and 6 weeks estimated gestational age who presented to the labor and delivery complaining of sudden fluid discharge from the vagina starting about 9 this evening. She thought she broke her water so she came in for evaluation. She is also complaining of increasing uterine contractions in intensity as well as frequency. She has actually been alejandro pretty steadily with painful contractions for a number of days, but they seemed to be getting stronger since she broke her water. Upon evaluation here she was found to be grossly ruptured and was checked and thought to be completely dilated so put directly in a room for expectant management. I was called and came promptly and when I checked her she actually was not completely dilated. She was about 3.5 cm, 95% effaced with the cervical opening being very, very posterior and the baby's head being at about -1 station. She is alejandro about every 3-5 minutes. heart tracing is nice and reactive. She was then admitted for routine expectant management. PAST OBSTETRICAL HISTORY: The patient has three prior vaginal births without problems in 2002, 2006 and 2010. This has been complicated with spotty follow up and general noncompliance. She has not seen me in clinic for a routine follow up since April 18. She has also had troubles with chronic back pain throughout the majority of this requesting Vicodin to manage this pain. She had chronic back pain before she was even and used Vicodin generally to manage this pain. So it just stretched into her . Through a good portion of the middle of the she was using four Vicodin 7.5 mg tablets per day to manage her pain, although in the last two months she has not had any at all. She has and not had any at all. She has bounced in and out of the center on many occasions over the last month or so complaining of contractions and was determined not to be in labor and was then sent home. About a month ago she had a significant wound infection in her left leg that turned out to be group A beta-hemolytic strep that was I and D, and resolved on its own spontaneously. LABORATORIES: Her initial labs were all unremarkable. She never did get her 28 week labs done nor her MSAFP test. SOCIAL HISTORY: The patient lives in [place] with her significant other and her four children. The patient has been a full-time [employer] at [employer] although is currently not employed. FAMILY HISTORY: Significant for brother with diabetes, a sister with cervical cancer and a mother who had breast cancer. Otherwise is noncontributory. MEDICATIONS: The patient's current medications are: 1. vitamins. 2. Citalopram 20 mg a day. 3. Hydroxyzine 25 mg as needed. ALLERGIES: The patient has an allergy to: 1. PENICILLIN. 2. KEFLEX. 3. CLINDAMYCIN. 4. LATEX. 5. PAPER TAPE. REVIEW OF SYSTEMS: See HPI above and then add, patient denies any recent illness. No significant vaginal discharge except for some bloody show over the last week until her spontaneous rupture of membranes. No fevers. No blurry vision. No headaches. Baby's been moving every day. No swelling in her feet. She is having some terrible back pain that she has been having throughout her whole . OBJECTIVE: Well-developed, thin woman in no apparent distress. Her temperature is 37 degrees Celsius, blood pressure is 123/66, pulse is 76. Lungs are clear to auscultation bilaterally with good air movement. Heart is regular rate and rhythm. No significant murmurs heard. Abdomen is gravid with normoactive bowel sounds. No hepatosplenomegaly is noted. Extremities show no cyanosis, clubbing or edema. Normal deep tendon reflexes. Cervical exam shows her to be 3-4 cm, 95% effaced, -1 station with gross rupture of membranes with clear/bloody fluid. heart tracing is very reactive and contractions are about every 3-5 minutes and moderately intense. LABORATORY TESTS: Are pending. ASSESSMENT AND PLAN: Intrauterine at term in labor with spontaneous rupture of membranes. The patient had a rapid strep test performed here at the center a couple weeks ago that was negative. We will provide routine expectant management. At this point, the patient is wanting to manage her pain naturally but is open to using an epidural if she becomes uncomfortable. I discussed routine expectant management issues and procedures. Also discussed the potential complications and the usual obstetrical procedures to them, address but also the possible need for surgical care if becomes needed. I also discussed the possible need for assistance with vacuum extraction and the associated potential complications. All of her questions were answered and she expressed understanding of these issues and is willing to proceed.
--- NOTE | 2017-06-09 04:32 | OP ---
[address] [address] OPERATIVE REPORT PATIENT: JAREK CORBIN : 1985 MR#: [id number] ADMIT: 06/08/2017 JOB ID: [id number] DATE OF SURGERY: SURGEON: Andrea Farmer MD. PREOPERATIVE DIAGNOSIS(ES): POSTOPERATIVE DIAGNOSIS(ES): DELIVERY NOTE: The patient had a spontaneous vaginal delivery as described below. Please see my admission H and P for presenting circumstances. Her labor course progressed nicely and slowly and she asked for an epidural at about 11:30 at night, and this was placed and completed about midnight with excellent results. She was about 5 cm at that time. She was noted to be completely effaced and dilated at 1:25 in the morning, and I was called to the room for her to begin pushing, and it became evident that the presentation of the baby's head was abnormal. Upon palpation of the presenting part, it appeared to be a malpresentation with a face presentation in an occiput posterior presentation. She was told to stop pushing and the baby's head was pushed further back up in the canal and Dr. Kraft, my obstetrical backup was called in to assess the circumstances. While we waited for Dr. Kraft to arrive, the baby's heartbeat would drift downwards to 60 or so at times and then with repositioning improve up into the 110-120s. Oxygen was placed on mom. She was transported to the operating room for probable operative delivery. When Dr. Kraft arrived he evaluated the circumstances and verified her malpresentation and reinserted the baby's head further up into the canal and pelvis and was able to flex the baby's head and then allowed the baby's head to descend again, and the baby delivered in an occiput posterior position fairly easily. There was umbilical cord across the baby's right shoulder, but this did not represent a problem and so the baby's delivery was completed at 2:00. The cord was clamped and cut and the baby was placed on mom's tummy. The placenta delivered spontaneously and intact at 2:15. Examination of her perineum revealed no lacerations at all. Examination her cervix revealed no lacerations. ESTIMATED BLOOD LOSS: 300 cc. COMPLICATIONS: Malpresentation with face presentation that was corrected by reinsertion and flexion of the baby's neck resulting in an acceptable presenting part. The baby's Apgars were 9 and 9. Weight is still pending. Routine orders were written. MTDD
[2017-06-09] MEDS: Ascorbic Acid 500 mg Tablet PO SCH ×2 (09:28→19:35)
[2017-06-09] MEDS: oxyCODONE-Acetamin 5-325 mg Tablet PO PRN ×3 (09:36→19:34)
[2017-06-09] MEDS ORDERED: hydrOXYzine Pamoate 25 mg Capsule PO PRN (09:55)
[2017-06-09] MEDS ORDERED: Measles-Mumps-Rubella Vaccine 0.5 mL Inj SUBQ ONE (11:10)
[2017-06-10] MEDS: Lactated Ringer's 1,000 ML IV SCH ×2 (00:03→02:46)
[2017-06-10] MEDS: Sodium Chloride LOK Flush 10 mL Syringe IVFLUSH SCH (00:30)
[2017-06-10] MEDS: oxyCODONE-Acetamin 5-325 mg Tablet PO PRN (04:57)
--- NOTE | 2017-06-10 07:27 | PCM.DC.OB ---
Obstetrical Discharge Summary Date of Service Jun 10, 2017 Date of hospital admission Jun 08, 2017 at 22:39 Date of Discharge: Jun 10, 2017 Providers Admitting Physician: Andrea Bravo MD Primary Care Physician: Andrea Bravo MD Attending Physician: Andrea Bravo MD Diagnosis at Time of Discharge Spontaneous Vaginal Delivery at Term Problems: Invasive procedures Spontaneous vaginal delivery Date of Procedure: Jun 09, 2017 Brief History and Physical: See H&P and Delivery note Albuterol HFA (Proair HFA) 8.5 Gm Hfa.aer.ad 2 PUFFS INHALATION Q4H Prescribed by: ADELFO DONG, Albuterol Sulfate (Ventolin HFA Inhaler) 200 Puff/18 Gm Inhaler 2 PUFFS IH Q4H PRN PRN For Wheezing (Reported) Citalopram (Citalopram) 20 Mg Tablet 20 MG PO DAILY (Reported) Hydrocodone-Acetaminophen 7.5-325 mg (Hydrocodone-Acetaminophen 7.5-325 mg) 1 Each Tablet 1 TAB PO q6-8h PRN PRN For Pain (Reported) Morphine Sulfate (Morphine Sulfate) 15 Mg Tablet 15 MG PO ONCE Prescribed by: ANDREA BRAVO MD Pnv with Ca,No.74/Iron/FA (Niva-Plus Tablet) 27 Mg Iron-1 Mg Tablet 1 TAB PO DAILY (Reported) Prednisone (PredniSONE) 20 Mg Tablet 20 MG PO DAILY Please take 40 mg per day for 2 days, take 20 mg per day for 2 days, then take 10 mg per day for 2 days. Prescribed by: ADELFO DONG DO hydrOXYzine Hcl (HydrOXYzine Hcl) 25 Mg Tablet 1-2 TAB PO TID PRN PRN For Anxiety (Reported) Andrea Bravo MD Jun 10, 2017 07:27
--- NOTE | 2017-06-10 07:30 | PCM.DIOB ---
Obstetrical Disch Instruction Date of Service: Jun 10, 2017 Dates of Hospitalization Date of Hospital Admission Jun 08, 2017 at 22:39 Providers Admitting Physician: Andrea Farmer MD Primary Care Physician: Andrea Farmer MD Attending Physician: Andrea Farmer MD Discharge Diagnosis Discharge Diagnosis Spontaneous vaginal delivery at term Problems: Diet Discharge Diet: No restrictions Activity Discharge Activity-General: Pelvic Rest for 6 weeks, Try not to overdue, Be up and about Dressing and Incisional Care Hygiene: May shower Follow Up Plan Follow Up Plan f/u with me in 6 weeks and as needed Follow-up Provider (F9): Andrea Farmer MD Follow-up appointment: Weeks (six) Andrea Farmer MD Jun 10, 2017 07:30
[2017-06-10] MEDS ORDERED: OXYC1TAB24 PO (07:31)
[2017-06-10] MEDS: Ascorbic Acid 500 mg Tablet PO SCH (08:32)
[2017-06-10 10:28] VITALS: BP 121/70; PULSE 61; RESP 16
[2017-06-10] MEDS: Witch Hazel-Glycerin Pads TOPICAL PRN (11:15)
--- NOTE | 2017-06-14 14:17 | DIS ---
[address] [address] DISCHARGE SUMMARY PATIENT: JAREK CORBIN : 1985 MR#: [id number] ADMIT: 06/08/2017 JOB ID: [id number] DIS: 06/10/2017 DISCHARGE DIAGNOSIS: Term , resolved with spontaneous vaginal delivery. HISTORY OF PRESENT ILLNESS: Please see my admission H and P for details. CONSULTATIONS: None. PROCEDURES PERFORMED: The patient had a spontaneous vaginal delivery on June 09. Please see my delivery note for full details. HOSPITAL COURSE: The patient was admitted in active labor on the evening of June 08. She progressed nicely, received an epidural for anesthesia which was very effective, and ended up with a spontaneous vaginal delivery early in the morning of June 09. Please see my delivery note for full details. The course was totally unremarkable. She did very well, with stable and normal vital signs throughout the rest of her hospitalization. Upon discharge she had no acute complaints, just complained of mild perineal discomfort, but noted to have decreasing lochia and no breast complaints. Denied chest pains, palpitations, or shortness of breath, or any significant abdominal pain. OBJECTIVE: The patient's vital signs were normal. Lungs were clear to auscultation bilaterally, with good air movement. Heart was regular rate and rhythm. No significant murmur was heard. Abdomen was soft, with the uterus firm below the umbilicus, and was otherwise unremarkable. Extremities showed no significant edema and normal deep tendon reflexes. ASSESSMENT: Status post spontaneous vaginal delivery at term. PLAN: We will discharge this patient today with instructions to follow up with me in six weeks, otherwise as needed. Discharged with 20 tablets of Percocet 5/325 to use for breakthrough pain and encouraged to use ibuprofen.
== END 2017-06-10 11:25 | disposition home or self-care (01) | DRG 775 ==
LOC: FBCO 22:22 → FBC 22:39
PROVIDERS: ADMIT Family Medicine; ATTEND Family Medicine
PROC: 10E0XZZ Delivery of Products of Conception, External Approach (ICD-10-PCS; principal; 2017-06-09)
DX: O64.2XX0 Obstructed labor due to face presentation, not applicable or unspecified (principal); Z3A.38 38 weeks gestation of pregnancy; Z37.0 Single live birth